=== PATIENT | male | born 1955 | race African-American/Black ===

== ENCOUNTER 2021-06-20 07:18 | Inpatient (IN) | payer OTHER ==
[~2021-06-20] VITALS: Ht 180.3 cm; Wt 121.1 kg
[2021-06-20] MEDS ORDERED: AZITHROMYCIN 500 MG in DEXT 5% WATER 250 ML IV ONE (07:30)
[2021-06-20] MEDS ORDERED: CEFTRIAXONE 1 G PREMIX 50 ML IV ONE (07:30)
[2021-06-20] MEDS ORDERED: DEXAMETHASONE 4MG/ML 1ML VIAL IV ONE (07:30)
[2021-06-20 07:56] LABS: BASOPHILS % 0.4 % (0.0-2.0); HEMATOCRIT. 51.4 % (42.0-52.0); LYMPHOCYTES % 8.9 % (20.0-50.0); MEAN CORPUSCULAR HEMOGLOBIN 31.5 pg (28.0-32.0); MEAN PLATELET VOLUME 8.4 fl (7.4-10.4); MONOCYTES % 10.8 % (2.0-8.0); NEUTROPHILS % 79.9 % (40.0-76.0); PLATELET 321 x1000/uL (130-400); RED BLOOD CELL COUNT 5.71 mill/uL (4.7-6.1); RED CELL DISTRIBUTION WIDTH 13.2 % (11.6-14.6)
[2021-06-20 07:57] LABS: BG BASE EXCESS -3.8 mmol/L (-2.0-2.0); BG CARBOXYHEMOGLOBIN 0.9 % (0.5-1.5); BG DEOXYHEMOGLOBIN 19.2 % (0.0-5.0); BG FRACTION INSPIRED OXYGEN 100; BG HCO3 ACT 19.5 mmol/L (22.0-26.0); BG METHEMOGLOBIN 0.2 % (0.0-1.5); BG OXYGEN SATURATION 80.6 % (92.0-98.5); BG OXYHEMOGLOBIN 79.7 % (94.0-97.0); BG PCO2 31.5 mmHg (35.0-45.0); BG PH 7.409 (7.350-7.450); BG PO2 45.4 mmHg (75.0-100.0); BG SAMPLE SITE RIGHT RADIAL; BG TOTAL HEMOGLOBIN 17.8 g/dL (12.0-18.0); BG VENT MODE MASK - NRB
[2021-06-20 07:57] LABS: CHLORIDE 105 mEq/L (98-107)
[2021-06-20 08:05] LABS: D-DIMER 1.26 mg/L FEU (<0.50)
[2021-06-20 08:31] LABS: CREATINE KINASE 1202 IU/L (39-308)
[2021-06-20 08:55] LABS: CLARITY URINE CLOUDY (CLEAR); COLOR URINE DARK YELLOW (YELLOW); KETONES URINE TRACE (NEGATIVE); LEUKOCYTE ESTERASE URINE TRACE (NEGATIVE); NITRITE URINE NEGATIVE (NEGATIVE); OCCULT BLOOD URINE NEGATIVE (NEGATIVE); PH URINE 5.5 (4.5-8.0); PROTEIN URINE 2+ (NEGATIVE); SPECIFIC GRAVITY URINE 1.022 (1.005-1.030)
[2021-06-20 10:15] LABS: BG BASE EXCESS -4.6 mmol/L (-2.0-2.0); BG DEOXYHEMOGLOBIN 5.5 % (0.0-5.0); BG FRACTION INSPIRED OXYGEN 100; BG HCO3 ACT 18.7 mmol/L (22.0-26.0); BG METHEMOGLOBIN 0.3 % (0.0-1.5); BG OXYGEN SATURATION 94.4 % (92.0-98.5); BG OXYHEMOGLOBIN 93.2 % (94.0-97.0); BG PCO2 31.1 mmHg (35.0-45.0); BG PH 7.398 (7.350-7.450); BG PO2 76.1 mmHg (75.0-100.0); BG SAMPLE SITE RIGHT RADIAL; BG TOTAL HEMOGLOBIN 17.2 g/dL (12.0-18.0); BG TOTAL RESPIRATORY RATE 39 b/min; BG VENT MODE MASK - BIPAP
[2021-06-20] MEDS ORDERED: NITROGLYCERIN 0.4MG TABLET SL SL PRN (10:15)
[2021-06-20] MEDS ORDERED: CLONIDINE 0.1MG TABLET PO PRN (10:15)
[2021-06-20] MEDS ORDERED: KETOROLAC 15MG/ML VIAL IV PRN (10:15)
[2021-06-20] MEDS ORDERED: GUAIFENESIN 200MG/10ML SUGAR FREE UDC PO PRN (10:15)
[2021-06-20] MEDS ORDERED: MAGNESIUM/ALUMINUM HYDROXIDE/SIMETHICONE 30ML UDC PO PRN (10:15)
[2021-06-20] MEDS ORDERED: ACETAMINOPHEN 325MG TABLET PO PRN ×2 (10:15)
[2021-06-20] MEDS ORDERED: ONDANSETRON HCL 4MG/2ML INJ IV PRN (10:15)
[2021-06-20] MEDS ORDERED: ALBUTEROL 6.7GM HFA INHALER ORI PRN (10:15)
[2021-06-20] MEDS ORDERED: DOCUSATE SODIUM 100MG CAPSULE PO PRN (10:15)
[2021-06-20] MEDS ORDERED: NA PHOS,M-B/NA PHOS,DI-BA ENEMA 118ML PR PRN (10:15)
[2021-06-20 10:40] LABS: TOTAL IRON BINDING CAPACITY 344 ug/dL (250-450)
[2021-06-20] MEDS: GUAIFENESIN/DM 600MG/30MG ER TAB 12HR PO SCH ×2 (10:41→21:05)
[2021-06-20] MEDS: ENOXAPARIN 30MG/0.3ML SYR SUBCUT SCH ×2 (10:42→21:06)
[2021-06-20 10:50] LABS: *COCAINE SCREEN URINE NEGATIVE (NEGATIVE); METHADONE URINE SCREEN NEGATIVE (NEGATIVE)
[2021-06-20 10:51] LABS: *AMPHETAMINES SCREEN URINE NEGATIVE (NEGATIVE); *BARBITURATES SCREEN URINE NEGATIVE (NEGATIVE); CANNABINOID URINE SCREEN NEGATIVE (NEGATIVE); OPIATES URINE SCREEN NEGATIVE (NEGATIVE); PHENCYCLIDINE URINE SCREEN NEGATIVE (NEGATIVE)
[2021-06-20 10:52] LABS: *BENZODIAZEPINES SCREEN URINE NEGATIVE (NEGATIVE)
[2021-06-20 10:56] LABS: FOLIC ACID (FOLATE) SERUM 13.6 ng/mL (>5.38)
[2021-06-20] MEDS: DILTIAZEM HCL 60MG TABLET PO SCH ×2 (11:45→18:13)
[2021-06-20 14:50] LABS: CREATINE KINASE MB FRACTION 10.4 ng/mL (0.5-3.6)
[2021-06-20 15:56] LABS: CREATINE KINASE 11352 IU/L (39-308)
[2021-06-20] MEDS: ALBUTEROL 6.7GM HFA INHALER ORI SCH ×2 (18:08→21:07)
[2021-06-20] MEDS ORDERED: SODIUM BICARBONATE 50 MEQ in SODIUM CHLORIDE 0.45% 1,000 ML IV SCH (20:30)
[2021-06-20] MEDS ORDERED: ZOLPIDEM TARTRATE 5MG TABLET PO PRN (21:00)
[2021-06-20] MEDS: ASCORBIC ACID 500 MG TABLET PO SCH (21:06)
[2021-06-20] MEDS: FAMOTIDINE 20MG TABLET PO SCH (21:07)
[2021-06-20 22:51] LABS: CREATINE KINASE MB FRACTION 12.8 ng/mL (0.5-3.6)
[2021-06-20 23:01] LABS: CREATINE KINASE 1238 IU/L (39-308)
[2021-06-21] VITALS (7 sets, daily range): BP systolic 119–185; BP diastolic 63–80
[2021-06-21] MEDS: DILTIAZEM HCL 60MG TABLET PO SCH ×4 (00:46→17:31)
[2021-06-21] MEDS: ALBUTEROL 6.7GM HFA INHALER ORI SCH ×4 (03:00→22:03)
[2021-06-21 05:52] LABS: CHLORIDE 107 mEq/L (98-107)
[2021-06-21 05:59] LABS: PHOSPHORUS 4.2 mg/dL (2.5-4.9)
[2021-06-21 06:09] LABS: BASOPHILS % 0.3 % (0.0-2.0); HEMATOCRIT. 46.3 % (42.0-52.0); HEMOGLOBIN. 15.9 g/dL (14.0-18.0); LYMPHOCYTES % 8.2 % (20.0-50.0); MEAN CORPUSCULAR HEMOGLOBIN 31.1 pg (28.0-32.0); MEAN CORPUSCULAR VOLUME 90.2 fL (80.0-94.0); MEAN PLATELET VOLUME 8.5 fl (7.4-10.4); NEUTROPHILS % 77.5 % (40.0-76.0); PLATELET 332 x1000/uL (130-400); RED BLOOD CELL COUNT 5.14 mill/uL (4.7-6.1)
[2021-06-21] MEDS ORDERED: CEFTRIAXONE 1 G PREMIX 50 ML IV SCH (08:00)
[2021-06-21] MEDS: CEFTRIAXONE 1,000 MG in DEXTROSE 5% WATER 50 ML IV SCH (08:05)
[2021-06-21] MEDS: CHOLECALCIFEROL (D3) 1000 UNIT TABLET PO SCH (08:05)
[2021-06-21] MEDS: ZINC SULFATE 220 MG ( 50 ) CAPSULE PO SCH (08:06)
[2021-06-21] MEDS: ENOXAPARIN 30MG/0.3ML SYR SUBCUT SCH ×2 (08:06→21:54)
[2021-06-21] MEDS: DEXAMETHASONE 10 MG/ML VIAL IV SCH (08:06)
[2021-06-21] MEDS: GUAIFENESIN/DM 600MG/30MG ER TAB 12HR PO SCH ×2 (08:06→21:54)
[2021-06-21] MEDS: ASPIRIN 81MG EC TABLET PO SCH (08:06)
[2021-06-21] MEDS: ASCORBIC ACID 500 MG TABLET PO SCH ×2 (08:07→21:54)
[2021-06-21] MEDS ORDERED: AZITHROMYCIN 500 MG in DEXT 5% WATER 250 ML IV SCH (09:00)
[2021-06-21] MEDS: AZITHROMYCIN 500 MG in DEXT 5% WATER 250 ML IV SCH (12:17)
[2021-06-21] MEDS ORDERED: ENOXAPARIN 40MG/0.4ML SYR SUBCUT SCH (15:00)
[2021-06-21] MEDS ORDERED: SODIUM BICARBONATE 50 MEQ in SODIUM CHLORIDE 0.45% 1,000 ML IV SCH (20:30)
[2021-06-21] MEDS: FAMOTIDINE 20MG TABLET PO SCH (21:54)
[2021-06-22] MEDS: DILTIAZEM HCL 60MG TABLET PO SCH ×4 (00:24→17:20)
[2021-06-22 00:29] VITALS: BP 121/73
[2021-06-22] MEDS: ALBUTEROL 6.7GM HFA INHALER ORI SCH ×4 (03:14→22:08)
[2021-06-22 04:00] VITALS: BP 142/81
[2021-06-22 08:00] VITALS: BP 127/59
[2021-06-22 08:23] LABS: CHLORIDE 105 mEq/L (98-107)
[2021-06-22] MEDS: ENOXAPARIN 30MG/0.3ML SYR SUBCUT SCH ×3 (09:00→22:08)
[2021-06-22] MEDS: CHOLECALCIFEROL (D3) 1000 UNIT TABLET PO SCH (09:06)
[2021-06-22] MEDS: ASCORBIC ACID 500 MG TABLET PO SCH ×2 (09:06→22:08)
[2021-06-22] MEDS: ZINC SULFATE 220 MG ( 50 ) CAPSULE PO SCH (09:06)
[2021-06-22] MEDS: DEXAMETHASONE 10 MG/ML VIAL IV SCH (09:07)
[2021-06-22] MEDS: ASPIRIN 81MG EC TABLET PO SCH (09:07)
[2021-06-22] MEDS: CEFTRIAXONE 1,000 MG in DEXTROSE 5% WATER 50 ML IV SCH (09:07)
[2021-06-22] MEDS: GUAIFENESIN/DM 600MG/30MG ER TAB 12HR PO SCH ×2 (09:07→22:08)
[2021-06-22 12:00] VITALS: BP 122/55
[2021-06-22] MEDS: AZITHROMYCIN 500 MG in DEXT 5% WATER 250 ML IV SCH (14:13)
[2021-06-22 16:00] VITALS: BP 123/52
[2021-06-22 20:00] VITALS: BP 139/87
[2021-06-22] MEDS: FAMOTIDINE 20MG TABLET PO SCH (22:08)
[2021-06-23] VITALS (31 sets, daily range): BP systolic 99–164; BP diastolic 72–109
[2021-06-23] MEDS: DILTIAZEM HCL 60MG TABLET PO SCH ×4 (00:30→17:49)
[2021-06-23] MEDS: ALBUTEROL 6.7GM HFA INHALER ORI SCH (03:00)
[2021-06-23 05:03] LABS: BG BASE EXCESS 3.1 mmol/L (-2.0-2.0); BG CARBOXYHEMOGLOBIN 0.6 % (0.5-1.5); BG FRACTION INSPIRED OXYGEN 100; BG METHEMOGLOBIN 0.2 % (0.0-1.5); BG OXYGEN SATURATION 83.9 % (92.0-98.5); BG OXYHEMOGLOBIN 83.2 % (94.0-97.0); BG PCO2 38.7 mmHg (35.0-45.0); BG PH 7.461 (7.350-7.450); BG PO2 46.3 mmHg (75.0-100.0); BG SAMPLE SITE RIGHT RADIAL; BG TOTAL HEMOGLOBIN 15.9 g/dL (12.0-18.0); BG VENT MODE MASK - BIPAP
[2021-06-23] MEDS ORDERED: PROPOFOL 10MG/ML 100ML 100 ML IV PRN (05:30)
[2021-06-23] MEDS ORDERED: NOREPINEPHRINE 32 MG in DEXT 5% WATER 218 ML IV PRN (05:45)
[2021-06-23 06:40] LABS: BG BASE EXCESS 2.1 mmol/L (-2.0-2.0); BG CARBOXYHEMOGLOBIN 0.5 % (0.5-1.5); BG DEOXYHEMOGLOBIN 4.5 % (0.0-5.0); BG FRACTION INSPIRED OXYGEN 100; BG HCO3 ACT 26.7 mmol/L (22.0-26.0); BG METHEMOGLOBIN 0.2 % (0.0-1.5); BG OXYGEN SATURATION 95.5 % (92.0-98.5); BG OXYHEMOGLOBIN 94.8 % (94.0-97.0); BG PCO2 41.5 mmHg (35.0-45.0); BG PH 7.426 (7.350-7.450); BG SAMPLE SITE RIGHT RADIAL; BG TOTAL HEMOGLOBIN 16.1 g/dL (12.0-18.0); BG VENT MODE MASK - BIPAP
[2021-06-23] MEDS: DEXAMETHASONE 10 MG/ML VIAL IV SCH (09:09)
[2021-06-23] MEDS: CHOLECALCIFEROL (D3) 1000 UNIT TABLET PO SCH (09:10)
[2021-06-23] MEDS: ENOXAPARIN 30MG/0.3ML SYR SUBCUT SCH ×2 (09:10→21:15)
[2021-06-23] MEDS: ASCORBIC ACID 500 MG TABLET PO SCH ×2 (09:10→21:15)
[2021-06-23] MEDS: ASPIRIN 81MG EC TABLET PO SCH (09:10)
[2021-06-23] MEDS: GUAIFENESIN/DM 600MG/30MG ER TAB 12HR PO SCH ×2 (09:10→21:15)
[2021-06-23] MEDS: ZINC SULFATE 220 MG ( 50 ) CAPSULE PO SCH (09:11)
[2021-06-23] MEDS: CEFTRIAXONE 1,000 MG in DEXTROSE 5% WATER 50 ML IV SCH (10:44)
[2021-06-23] MEDS ORDERED: LIDOCAINE HCL 1% 20ML VIAL (Pyxis) INJ ONE (11:06)
[2021-06-23] MEDS: AZITHROMYCIN 500 MG in DEXT 5% WATER 250 ML IV SCH (11:49)
[2021-06-23] MEDS: FAMOTIDINE 20MG TABLET PO SCH (21:15)
[2021-06-24] VITALS (80 sets, daily range): BP systolic 79–202; BP diastolic 53–97
[2021-06-24] MEDS: DILTIAZEM HCL 60MG TABLET PO SCH ×4 (00:15→17:15)
[2021-06-24] MEDS ORDERED: VECURONIUM BROMIDE 10 MG/VIAL IV ONE (07:52)
[2021-06-24] MEDS ORDERED: ATROPINE SULFATE 1MG/10ML SYR ONE (07:52)
[2021-06-24] MEDS ORDERED: ETOMIDATE 2MG/ML 10ML VIAL IV ONE (07:52)
[2021-06-24] MEDS ORDERED: SUCCINYLCHOLINE CHLORIDE 200MG/10ML IV ONE (07:52)
[2021-06-24] MEDS ORDERED: SODIUM CHLORIDE 0.9% 10ML VIAL ONE (07:52)
[2021-06-24] MEDS: ASCORBIC ACID 500 MG TABLET PO SCH ×2 (09:00→20:29)
[2021-06-24] MEDS: CHOLECALCIFEROL (D3) 1000 UNIT TABLET PO SCH (09:00)
[2021-06-24] MEDS: ZINC SULFATE 220 MG ( 50 ) CAPSULE PO SCH (09:00)
[2021-06-24] MEDS ORDERED: IPRATROPIUM/ALBUTEROL 0.5-3(2.5)MG/3ML NEB HHN PRN (09:00)
[2021-06-24] MEDS: GUAIFENESIN/DM 600MG/30MG ER TAB 12HR PO SCH ×2 (09:00→20:29)
[2021-06-24] MEDS: ASPIRIN 81MG EC TABLET PO SCH (09:00)
[2021-06-24] MEDS: MIDAZOLAM HCL 100 MG in SODIUM CHLORIDE 0.9% 80 ML IV PRN ×3 (09:19→22:39)
[2021-06-24] MEDS: FENTANYL CITRATE/PF 2,500 MCG in SODIUM CHLORIDE 0.9% 200 ML IV PRN ×3 (09:22→22:40)
[2021-06-24] MEDS: PROPOFOL 10MG/ML 100ML 100 ML IV PRN ×5 (09:23→22:53)
[2021-06-24 10:32] LABS: BG BASE EXCESS 0.4 mmol/L (-2.0-2.0); BG CARBOXYHEMOGLOBIN 1.1 % (0.5-1.5); BG DEOXYHEMOGLOBIN 20.8 % (0.0-5.0); BG FRACTION INSPIRED OXYGEN 100; BG HCO3 ACT 28.8 mmol/L (22.0-26.0); BG METHEMOGLOBIN 0.3 % (0.0-1.5); BG OXYGEN SATURATION 78.9 % (92.0-98.5); BG OXYHEMOGLOBIN 77.8 % (94.0-97.0); BG PCO2 61.1 mmHg (35.0-45.0); BG PH 7.291 (7.350-7.450); BG PO2 49.4 mmHg (75.0-100.0); BG SAMPLE SITE RIGHT RADIAL; BG TOTAL HEMOGLOBIN 16.7 g/dL (12.0-18.0); BG TOTAL RESPIRATORY RATE 23 b/min; BG VENT MODE VENT - AC
[2021-06-24] MEDS: IPRATROPIUM/ALBUTEROL 0.5-3(2.5)MG/3ML NEB HHN SCH ×3 (10:37→16:37)
[2021-06-24] MEDS: AZITHROMYCIN 500 MG in DEXT 5% WATER 250 ML IV SCH (10:46)
[2021-06-24] MEDS: ENOXAPARIN 30MG/0.3ML SYR SUBCUT SCH ×2 (10:46→20:28)
[2021-06-24] MEDS: CEFTRIAXONE 1,000 MG in DEXTROSE 5% WATER 50 ML IV SCH (10:46)
[2021-06-24] MEDS: DEXAMETHASONE 10 MG/ML VIAL IV SCH (10:46)
[2021-06-24] MEDS ORDERED: VECURONIUM BROMIDE 10 MG/VIAL IV SCH (11:30)
[2021-06-24] MEDS: NOREPINEPHRINE 32 MG in DEXT 5% WATER 218 ML IV PRN (12:03)
[2021-06-24] MEDS: FAMOTIDINE 20MG TABLET PO SCH (20:29)
[2021-06-25] VITALS (100 sets, daily range): BP systolic 87–166; BP diastolic 36–79
[2021-06-25] MEDS: DILTIAZEM HCL 60MG TABLET PO SCH ×4 (00:16→16:40)
[2021-06-25] MEDS: IPRATROPIUM/ALBUTEROL 0.5-3(2.5)MG/3ML NEB HHN SCH ×6 (00:58→20:47)
[2021-06-25] MEDS: PROPOFOL 10MG/ML 100ML 100 ML IV PRN ×6 (02:10→21:24)
[2021-06-25] MEDS: MIDAZOLAM HCL 100 MG in SODIUM CHLORIDE 0.9% 80 ML IV PRN ×3 (05:47→20:20)
[2021-06-25] MEDS: FENTANYL CITRATE/PF 2,500 MCG in SODIUM CHLORIDE 0.9% 200 ML IV PRN ×3 (05:47→21:25)
[2021-06-25 07:31] LABS: HEMATOCRIT. 44.3 % (42.0-52.0); HEMOGLOBIN. 14.6 g/dL (14.0-18.0); MEAN CORPUSCULAR HEMOGLOBIN 30.6 pg (28.0-32.0); MEAN CORPUSCULAR VOLUME 92.9 fL (80.0-94.0); MEAN PLATELET VOLUME 8.9 fl (7.4-10.4); PLATELET 205 x1000/uL (130-400); RED BLOOD CELL COUNT 4.77 mill/uL (4.7-6.1); RED CELL DISTRIBUTION WIDTH 13.2 % (11.6-14.6)
[2021-06-25] MEDS: GUAIFENESIN/DM 600MG/30MG ER TAB 12HR PO SCH ×2 (09:00→21:59)
[2021-06-25] MEDS: ENOXAPARIN 30MG/0.3ML SYR SUBCUT SCH ×2 (09:51→21:59)
[2021-06-25] MEDS: DEXAMETHASONE 10 MG/ML VIAL IV SCH (09:52)
[2021-06-25] MEDS: CEFTRIAXONE 1,000 MG in DEXTROSE 5% WATER 50 ML IV SCH (09:52)
[2021-06-25] MEDS: ZINC SULFATE 220 MG ( 50 ) CAPSULE PO SCH (09:53)
[2021-06-25] MEDS: ASCORBIC ACID 500 MG TABLET PO SCH ×2 (09:53→21:59)
[2021-06-25] MEDS: CHOLECALCIFEROL (D3) 1000 UNIT TABLET PO SCH (09:53)
[2021-06-25] MEDS: ASPIRIN 81MG EC TABLET PO SCH (09:53)
[2021-06-25 10:16] LABS: BG BASE EXCESS -2.8 mmol/L (-2.0-2.0); BG CARBOXYHEMOGLOBIN 1.5 % (0.5-1.5); BG DEOXYHEMOGLOBIN 10.2 % (0.0-5.0); BG FRACTION INSPIRED OXYGEN 100; BG HCO3 ACT 26.7 mmol/L (22.0-26.0); BG METHEMOGLOBIN 0.1 % (0.0-1.5); BG OXYGEN SATURATION 89.6 % (92.0-98.5); BG OXYHEMOGLOBIN 88.2 % (94.0-97.0); BG PCO2 67.2 mmHg (35.0-45.0); BG PH 7.217 (7.350-7.450); BG PO2 62.6 mmHg (75.0-100.0); BG SAMPLE SITE LEFT RADIAL; BG TOTAL HEMOGLOBIN 15.3 g/dL (12.0-18.0); BG VENT MODE VENT - AC
[2021-06-25 10:47] LABS: NUCLEATED RED BLOOD CELLS 1 /100 WBC; PLATELET ESTIMATE NORMAL
[2021-06-25] MEDS: AZITHROMYCIN 500 MG in DEXT 5% WATER 250 ML IV SCH (10:49)
[2021-06-25] MEDS ORDERED: DEXT 5%/0.9% NACL 1,000 ML IV SCH (11:00)
[2021-06-25 14:33] LABS: BG CARBOXYHEMOGLOBIN 0.8 % (0.5-1.5); BG DEOXYHEMOGLOBIN 1.8 % (0.0-5.0); BG FRACTION INSPIRED OXYGEN 100; BG HCO3 ACT 26.1 mmol/L (22.0-26.0); BG METHEMOGLOBIN 0.5 % (0.0-1.5); BG OXYGEN SATURATION 98.2 % (92.0-98.5); BG OXYHEMOGLOBIN 96.9 % (94.0-97.0); BG PCO2 58.4 mmHg (35.0-45.0); BG PH 7.268 (7.350-7.450); BG PO2 132.2 mmHg (75.0-100.0); BG SAMPLE SITE RIGHT RADIAL; BG TOTAL HEMOGLOBIN 14.8 g/dL (12.0-18.0); BG TOTAL RESPIRATORY RATE 36 b/min; BG VENT MODE VENT - AC
[2021-06-25] MEDS: SODIUM CHLORIDE 0.9% 1,000 ML IV SCH (15:21)
[2021-06-25] MEDS: FAMOTIDINE 20MG TABLET PO SCH (21:59)
[2021-06-25] MEDS: NOREPINEPHRINE 32 MG in DEXT 5% WATER 218 ML IV PRN (22:12)
[2021-06-26] VITALS (97 sets, daily range): BP systolic 81–155; BP diastolic 37–123
[2021-06-26] MEDS: PROPOFOL 10MG/ML 100ML 100 ML IV PRN ×6 (00:14→21:16)
[2021-06-26] MEDS: IPRATROPIUM/ALBUTEROL 0.5-3(2.5)MG/3ML NEB HHN SCH ×6 (01:22→20:15)
[2021-06-26] MEDS: MIDAZOLAM HCL 100 MG in SODIUM CHLORIDE 0.9% 80 ML IV PRN ×3 (03:45→18:15)
[2021-06-26 05:14] LABS: HEMATOCRIT. 39.4 % (42.0-52.0); HEMOGLOBIN. 13.2 g/dL (14.0-18.0); MEAN CORPUSCULAR HEMOGLOBIN 30.8 pg (28.0-32.0); MEAN CORPUSCULAR VOLUME 92.1 fL (80.0-94.0); MEAN PLATELET VOLUME 9.4 fl (7.4-10.4); PLATELET 266 x1000/uL (130-400); RED BLOOD CELL COUNT 4.28 mill/uL (4.7-6.1); RED CELL DISTRIBUTION WIDTH 13.1 % (11.6-14.6)
[2021-06-26] MEDS: DILTIAZEM HCL 60MG TABLET PO SCH ×4 (06:16→18:00)
[2021-06-26] MEDS: FENTANYL CITRATE/PF 2,500 MCG in SODIUM CHLORIDE 0.9% 200 ML IV PRN ×3 (06:16→22:36)
[2021-06-26] MEDS: DEXAMETHASONE 10 MG/ML VIAL IV SCH (08:27)
[2021-06-26] MEDS: ENOXAPARIN 30MG/0.3ML SYR SUBCUT SCH ×2 (08:27→21:15)
[2021-06-26] MEDS: ASPIRIN 81MG EC TABLET PO SCH (08:28)
[2021-06-26] MEDS: CHOLECALCIFEROL (D3) 1000 UNIT TABLET PO SCH (08:28)
[2021-06-26] MEDS: ASCORBIC ACID 500 MG TABLET PO SCH ×2 (08:28→21:15)
[2021-06-26] MEDS: ZINC SULFATE 220 MG ( 50 ) CAPSULE PO SCH (08:29)
[2021-06-26 08:43] LABS: BG BASE EXCESS -3.1 mmol/L (-2.0-2.0); BG CARBOXYHEMOGLOBIN 0.3 % (0.5-1.5); BG DEOXYHEMOGLOBIN 1.4 % (0.0-5.0); BG HCO3 ACT 23.4 mmol/L (22.0-26.0); BG METHEMOGLOBIN 0.3 % (0.0-1.5); BG OXYGEN SATURATION 98.6 % (92.0-98.5); BG PCO2 47.3 mmHg (35.0-45.0); BG PH 7.312 (7.350-7.450); BG PO2 135.8 mmHg (75.0-100.0); BG SAMPLE SITE RIGHT RADIAL; BG TOTAL HEMOGLOBIN 13.7 g/dL (12.0-18.0); BG VENT MODE VENT- PRVC
[2021-06-26] MEDS: GUAIFENESIN/DM 600MG/30MG ER TAB 12HR PO SCH ×2 (09:00→21:15)
[2021-06-26] MEDS: METOCLOPRAMIDE HCL 10MG/2ML VIAL IV SCH ×2 (11:32→17:06)
[2021-06-26] MEDS: SODIUM CHLORIDE 0.9% 1,000 ML IV SCH (11:33)
[2021-06-26] MEDS ORDERED: LIDOCAINE HCL 1% 20ML VIAL (Pyxis) INJ ONE (13:42)
[2021-06-26] MEDS ORDERED: VECURONIUM BROMIDE 10 MG/VIAL IV NR (16:15)
[2021-06-26 17:03] LABS: PLATELET ESTIMATE NORMAL
[2021-06-26 17:14] LABS: HEPATITIS B SURFACE ANTIGEN NEGATIVE
[2021-06-26] MEDS: FAMOTIDINE 20MG TABLET PO SCH (21:15)
[2021-06-26] MEDS: NOREPINEPHRINE 32 MG in DEXT 5% WATER 218 ML IV PRN (21:17)
[2021-06-27] VITALS (97 sets, daily range): BP systolic 68–194; BP diastolic 33–94
[2021-06-27] MEDS: PROPOFOL 10MG/ML 100ML 100 ML IV PRN ×7 (00:13→23:25)
[2021-06-27] MEDS: IPRATROPIUM/ALBUTEROL 0.5-3(2.5)MG/3ML NEB HHN SCH ×5 (00:15→21:05)
[2021-06-27] MEDS: METOCLOPRAMIDE HCL 10MG/2ML VIAL IV SCH ×4 (00:45→18:40)
[2021-06-27] MEDS: MIDAZOLAM HCL 100 MG in SODIUM CHLORIDE 0.9% 80 ML IV PRN ×4 (01:06→20:08)
[2021-06-27 05:15] LABS: HEMATOCRIT. 40.5 % (42.0-52.0); HEMOGLOBIN. 13.2 g/dL (14.0-18.0); MEAN CORPUSCULAR HEMOGLOBIN 30.6 pg (28.0-32.0); MEAN CORPUSCULAR VOLUME 94.1 fL (80.0-94.0); MEAN PLATELET VOLUME 9.3 fl (7.4-10.4); PLATELET 266 x1000/uL (130-400); RED CELL DISTRIBUTION WIDTH 13.6 % (11.6-14.6)
[2021-06-27] MEDS: DILTIAZEM HCL 60MG TABLET PO SCH ×4 (05:36→18:00)
[2021-06-27] MEDS: FENTANYL CITRATE/PF 2,500 MCG in SODIUM CHLORIDE 0.9% 200 ML IV PRN ×3 (06:28→21:15)
[2021-06-27 07:34] LABS: NUCLEATED RED BLOOD CELLS 2 /100 WBC
[2021-06-27 07:35] LABS: PLATELET ESTIMATE NORMAL
[2021-06-27] MEDS: GUAIFENESIN/DM 600MG/30MG ER TAB 12HR PO SCH ×2 (08:42→21:31)
[2021-06-27] MEDS: ASCORBIC ACID 500 MG TABLET PO SCH ×2 (08:42→21:31)
[2021-06-27] MEDS: DEXAMETHASONE 10 MG/ML VIAL IV SCH (08:42)
[2021-06-27] MEDS: ZINC SULFATE 220 MG ( 50 ) CAPSULE PO SCH (08:42)
[2021-06-27] MEDS: ASPIRIN 81MG EC TABLET PO SCH (08:42)
[2021-06-27] MEDS: CHOLECALCIFEROL (D3) 1000 UNIT TABLET PO SCH (08:42)
[2021-06-27] MEDS: ENOXAPARIN 30MG/0.3ML SYR SUBCUT SCH ×2 (08:43→21:31)
[2021-06-27 10:47] LABS: BG BASE EXCESS -4.2 mmol/L (-2.0-2.0); BG DEOXYHEMOGLOBIN 20.5 % (0.0-5.0); BG HCO3 ACT 23.5 mmol/L (22.0-26.0); BG METHEMOGLOBIN 0.1 % (0.0-1.5); BG OXYGEN SATURATION 79.3 % (92.0-98.5); BG OXYHEMOGLOBIN 78.4 % (94.0-97.0); BG PCO2 54.4 mmHg (35.0-45.0); BG PH 7.254 (7.350-7.450); BG TOTAL HEMOGLOBIN 13.5 g/dL (12.0-18.0)
[2021-06-27] MEDS: CEFEPIME 1,000 MG in DEXTROSE 5% WATER 50 ML IV SCH (13:13)
[2021-06-27] MEDS ORDERED: HEPARIN 1000 UNITS/ML 10ML ONE (14:45)
[2021-06-27 17:13] LABS: BG BASE EXCESS -5.6 mmol/L (-2.0-2.0); BG DEOXYHEMOGLOBIN 2.1 % (0.0-5.0); BG FRACTION INSPIRED OXYGEN 90; BG HCO3 ACT 22.6 mmol/L (22.0-26.0); BG METHEMOGLOBIN 0.4 % (0.0-1.5); BG OXYGEN SATURATION 97.9 % (92.0-98.5); BG OXYHEMOGLOBIN 96.5 % (94.0-97.0); BG PCO2 54.8 mmHg (35.0-45.0); BG PH 7.233 (7.350-7.450); BG PO2 124.5 mmHg (75.0-100.0); BG SAMPLE SITE RIGHT RADIAL; BG TOTAL HEMOGLOBIN 14.9 g/dL (12.0-18.0); BG VENT MODE VENT - PRVC
[2021-06-27] MEDS: FAMOTIDINE 20MG TABLET PO SCH (21:31)
[2021-06-28] VITALS (94 sets, daily range): BP systolic 89–165; BP diastolic 45–98
[2021-06-28] MEDS: IPRATROPIUM/ALBUTEROL 0.5-3(2.5)MG/3ML NEB HHN SCH ×6 (00:45→20:41)
[2021-06-28] MEDS: DILTIAZEM HCL 60MG TABLET PO SCH ×4 (00:52→18:00)
[2021-06-28] MEDS: METOCLOPRAMIDE HCL 10MG/2ML VIAL IV SCH ×4 (00:52→17:16)
[2021-06-28] MEDS: NOREPINEPHRINE 32 MG in DEXT 5% WATER 218 ML IV PRN (01:06)
[2021-06-28] MEDS: MIDAZOLAM HCL 100 MG in SODIUM CHLORIDE 0.9% 80 ML IV PRN ×3 (03:39→17:17)
[2021-06-28] MEDS: PROPOFOL 10MG/ML 100ML 100 ML IV PRN ×5 (04:13→21:18)
[2021-06-28] MEDS: FENTANYL CITRATE/PF 2,500 MCG in SODIUM CHLORIDE 0.9% 200 ML IV PRN ×3 (05:03→20:45)
[2021-06-28] MEDS ORDERED: SODIUM POLYSTYRENE SULFONATE 15 G/60 ML BOT PO NR (09:12)
[2021-06-28] MEDS ORDERED: SODIUM BICARBONATE 8.4% 1 MEQ/ML 50ML SYR IV NR (09:15)
[2021-06-28] MEDS: ZINC SULFATE 220 MG ( 50 ) CAPSULE PO SCH (09:43)
[2021-06-28] MEDS: ASPIRIN 81MG EC TABLET PO SCH (09:43)
[2021-06-28] MEDS: ASCORBIC ACID 500 MG TABLET PO SCH ×2 (09:43→20:45)
[2021-06-28] MEDS: ENOXAPARIN 30MG/0.3ML SYR SUBCUT SCH ×2 (09:43→20:46)
[2021-06-28] MEDS: CHOLECALCIFEROL (D3) 1000 UNIT TABLET PO SCH (09:43)
[2021-06-28] MEDS: DEXAMETHASONE 10 MG/ML VIAL IV SCH (09:44)
[2021-06-28] MEDS: GUAIFENESIN/DM 600MG/30MG ER TAB 12HR PO SCH ×2 (09:44→20:45)
[2021-06-28 09:52] LABS: BG BASE EXCESS -3.7 mmol/L (-2.0-2.0); BG CARBOXYHEMOGLOBIN 0.9 % (0.5-1.5); BG DEOXYHEMOGLOBIN 1.4 % (0.0-5.0); BG FRACTION INSPIRED OXYGEN 90; BG HCO3 ACT 21.9 mmol/L (22.0-26.0); BG METHEMOGLOBIN 0.4 % (0.0-1.5); BG OXYGEN SATURATION 98.6 % (92.0-98.5); BG OXYHEMOGLOBIN 97.3 % (94.0-97.0); BG PCO2 41.5 mmHg (35.0-45.0); BG PO2 141.4 mmHg (75.0-100.0); BG SAMPLE SITE RIGHT RADIAL; BG TOTAL HEMOGLOBIN 12.7 g/dL (12.0-18.0); BG VENT MODE VENT - PRVC
[2021-06-28 10:06] LABS: HEMATOCRIT. 36.9 % (42.0-52.0); HEMOGLOBIN. 11.8 g/dL (14.0-18.0); MEAN CORPUSCULAR HEMOGLOBIN 30.4 pg (28.0-32.0); MEAN CORPUSCULAR VOLUME 94.8 fL (80.0-94.0); MEAN PLATELET VOLUME 8.9 fl (7.4-10.4); PLATELET 275 x1000/uL (130-400); RED BLOOD CELL COUNT 3.89 mill/uL (4.7-6.1); RED CELL DISTRIBUTION WIDTH 13.7 % (11.6-14.6)
[2021-06-28 11:04] LABS: NUCLEATED RED BLOOD CELLS 1 /100 WBC; PLATELET ESTIMATE NORMAL
[2021-06-28] MEDS: CEFEPIME 1,000 MG in DEXTROSE 5% WATER 50 ML IV SCH (12:48)
[2021-06-28] MEDS ORDERED: VECURONIUM BROMIDE 10 MG/VIAL IV NR (15:30)
[2021-06-28] MEDS: FAMOTIDINE 20MG TABLET PO SCH (20:45)
[2021-06-29] VITALS (94 sets, daily range): BP systolic 90–148; BP diastolic 49–87
[2021-06-29] MEDS: IPRATROPIUM/ALBUTEROL 0.5-3(2.5)MG/3ML NEB HHN SCH ×5 (00:06→16:44)
[2021-06-29] MEDS: METOCLOPRAMIDE HCL 10MG/2ML VIAL IV SCH ×5 (00:08→23:40)
[2021-06-29] MEDS: PROPOFOL 10MG/ML 100ML 100 ML IV PRN ×5 (00:47→20:02)
[2021-06-29] MEDS: MIDAZOLAM HCL 100 MG in SODIUM CHLORIDE 0.9% 80 ML IV PRN ×4 (00:49→22:06)
[2021-06-29] MEDS: NOREPINEPHRINE 32 MG in DEXT 5% WATER 218 ML IV PRN (05:05)
[2021-06-29] MEDS: FENTANYL CITRATE/PF 2,500 MCG in SODIUM CHLORIDE 0.9% 200 ML IV PRN ×3 (05:06→20:05)
[2021-06-29] MEDS: DILTIAZEM HCL 60MG TABLET PO SCH ×5 (05:28→23:39)
[2021-06-29 05:44] LABS: HEMATOCRIT. 34.7 % (42.0-52.0); HEMOGLOBIN. 11.4 g/dL (14.0-18.0); MEAN CORPUSCULAR HEMOGLOBIN 30.4 pg (28.0-32.0); MEAN CORPUSCULAR VOLUME 92.2 fL (80.0-94.0); MEAN PLATELET VOLUME 9.2 fl (7.4-10.4); PLATELET 298 x1000/uL (130-400); RED BLOOD CELL COUNT 3.76 mill/uL (4.7-6.1); RED CELL DISTRIBUTION WIDTH 13.9 % (11.6-14.6)
[2021-06-29 08:28] LABS: BG BASE EXCESS -3.8 mmol/L (-2.0-2.0); BG DEOXYHEMOGLOBIN 3.7 % (0.0-5.0); BG HCO3 ACT 21.1 mmol/L (22.0-26.0); BG METHEMOGLOBIN 0.4 % (0.0-1.5); BG OXYGEN SATURATION 96.2 % (92.0-98.5); BG OXYHEMOGLOBIN 94.9 % (94.0-97.0); BG PCO2 37.8 mmHg (35.0-45.0); BG PH 7.365 (7.350-7.450); BG PO2 88.9 mmHg (75.0-100.0); BG SAMPLE SITE RIGHT RADIAL; BG TOTAL HEMOGLOBIN 12.4 g/dL (12.0-18.0); BG VENT MODE VENT- PRVC
[2021-06-29] MEDS: DEXAMETHASONE 10 MG/ML VIAL IV SCH (09:07)
[2021-06-29] MEDS: CHOLECALCIFEROL (D3) 1000 UNIT TABLET PO SCH (09:07)
[2021-06-29] MEDS: ENOXAPARIN 30MG/0.3ML SYR SUBCUT SCH (09:08)
[2021-06-29] MEDS: ASCORBIC ACID 500 MG TABLET PO SCH ×2 (09:08→20:05)
[2021-06-29] MEDS: ASPIRIN 81MG EC TABLET PO SCH (09:08)
[2021-06-29] MEDS: GUAIFENESIN/DM 600MG/30MG ER TAB 12HR PO SCH ×2 (09:08→20:05)
[2021-06-29] MEDS: ZINC SULFATE 220 MG ( 50 ) CAPSULE PO SCH (09:09)
[2021-06-29] MEDS: CEFEPIME 1,000 MG in DEXTROSE 5% WATER 50 ML IV SCH (12:24)
[2021-06-29 12:41] LABS: PLATELET ESTIMATE NORMAL
[2021-06-29] MEDS: FAMOTIDINE 20MG TABLET PO SCH (20:05)
[2021-06-30] VITALS (90 sets, daily range): BP systolic 86–137; BP diastolic 40–77
[2021-06-30] MEDS: IPRATROPIUM/ALBUTEROL 0.5-3(2.5)MG/3ML NEB HHN SCH ×6 (00:38→20:37)
[2021-06-30 00:59] LABS: HEPATITIS B SURFACE ANTIGEN NEGATIVE
[2021-06-30] MEDS: PROPOFOL 10MG/ML 100ML 100 ML IV PRN ×6 (01:19→21:31)
[2021-06-30] MEDS: FENTANYL CITRATE/PF 2,500 MCG in SODIUM CHLORIDE 0.9% 200 ML IV PRN ×3 (03:53→19:38)
[2021-06-30 05:18] LABS: HEMATOCRIT. 31.9 % (42.0-52.0); HEMOGLOBIN. 10.5 g/dL (14.0-18.0); MEAN CORPUSCULAR HEMOGLOBIN 30.3 pg (28.0-32.0); MEAN CORPUSCULAR VOLUME 92.4 fL (80.0-94.0); MEAN PLATELET VOLUME 9.5 fl (7.4-10.4); PLATELET 308 x1000/uL (130-400); RED BLOOD CELL COUNT 3.46 mill/uL (4.7-6.1)
[2021-06-30] MEDS: METOCLOPRAMIDE HCL 10MG/2ML VIAL IV SCH ×3 (05:23→17:10)
[2021-06-30] MEDS: DILTIAZEM HCL 60MG TABLET PO SCH ×3 (05:23→17:01)
[2021-06-30] MEDS: MIDAZOLAM HCL 100 MG in SODIUM CHLORIDE 0.9% 80 ML IV PRN ×3 (05:31→19:46)
[2021-06-30] MEDS ORDERED: VECURONIUM BROMIDE 10 MG/VIAL IV SCH (06:15)
[2021-06-30] MEDS ORDERED: ENOXAPARIN 30MG/0.3ML SYR SUBCUT SCH (09:00)
[2021-06-30] MEDS: ASPIRIN 81MG EC TABLET PO SCH (09:48)
[2021-06-30] MEDS: ZINC SULFATE 220 MG ( 50 ) CAPSULE PO SCH (09:48)
[2021-06-30] MEDS: CHOLECALCIFEROL (D3) 1000 UNIT TABLET PO SCH (09:48)
[2021-06-30] MEDS: DEXAMETHASONE 10 MG/ML VIAL IV SCH (09:49)
[2021-06-30] MEDS: GUAIFENESIN/DM 600MG/30MG ER TAB 12HR PO SCH ×2 (09:50→21:25)
[2021-06-30] MEDS: ASCORBIC ACID 500 MG TABLET PO SCH ×2 (09:51→21:25)
[2021-06-30 10:13] LABS: BG BASE EXCESS -3.7 mmol/L (-2.0-2.0); BG FRACTION INSPIRED OXYGEN 100; BG METHEMOGLOBIN 0.3 % (0.0-1.5); BG OXYGEN SATURATION 94.9 % (92.0-98.5); BG OXYHEMOGLOBIN 93.7 % (94.0-97.0); BG PCO2 48.7 mmHg (35.0-45.0); BG PH 7.292 (7.350-7.450); BG PO2 83.5 mmHg (75.0-100.0); BG SAMPLE SITE LEFT RADIAL; BG TOTAL HEMOGLOBIN 11.9 g/dL (12.0-18.0); BG VENT MODE VENT - PRVC
[2021-06-30] MEDS ORDERED: SODIUM BICARBONATE 8.4% 1 MEQ/ML 50ML SYR IV NR (11:45)
[2021-06-30] MEDS: CEFEPIME 1,000 MG in DEXTROSE 5% WATER 50 ML IV SCH (11:58)
[2021-06-30 14:28] LABS: PLATELET ESTIMATE NORMAL
[2021-06-30 14:47] LABS: BG BASE EXCESS -2.4 mmol/L (-2.0-2.0); BG CARBOXYHEMOGLOBIN 1.9 % (0.5-1.5); BG FRACTION INSPIRED OXYGEN 100; BG HCO3 ACT 26.2 mmol/L (22.0-26.0); BG METHEMOGLOBIN 0.2 % (0.0-1.5); BG OXYGEN SATURATION 94.9 % (92.0-98.5); BG OXYHEMOGLOBIN 92.9 % (94.0-97.0); BG PH 7.236 (7.350-7.450); BG PO2 88.1 mmHg (75.0-100.0); BG SAMPLE SITE LEFT RADIAL; BG TOTAL HEMOGLOBIN 13.1 g/dL (12.0-18.0); BG VENT MODE VENT - PRVC
[2021-06-30] MEDS ORDERED: SODIUM BICARBONATE 8.4% 1 MEQ/ML 50ML SYR IV SCH (15:15)
[2021-06-30] MEDS: SODIUM BICARBONATE 50 MEQ in DEXTROSE 5% WATER 1,000 ML IV SCH (17:38)
[2021-06-30] MEDS: FAMOTIDINE 20MG TABLET PO SCH (21:25)
[2021-06-30 23:00] LABS: BG BASE EXCESS -0.8 mmol/L (-2.0-2.0); BG CARBOXYHEMOGLOBIN 1.7 % (0.5-1.5); BG DEOXYHEMOGLOBIN 3.9 % (0.0-5.0); BG FRACTION INSPIRED OXYGEN 100; BG HCO3 ACT 24.8 mmol/L (22.0-26.0); BG METHEMOGLOBIN 0.4 % (0.0-1.5); BG PCO2 44.9 mmHg (35.0-45.0); BG PO2 89.1 mmHg (75.0-100.0); BG SAMPLE SITE RIGHT RADIAL; BG TOTAL HEMOGLOBIN 11.5 g/dL (12.0-18.0); BG VENT MODE VENT - APRV
[2021-06-30 23:31] LABS: HEPATITIS B SURFACE ANTIGEN NEGATIVE
[2021-07-01] VITALS (98 sets, daily range): BP systolic 83–158; BP diastolic 52–96
[2021-07-01] MEDS: IPRATROPIUM/ALBUTEROL 0.5-3(2.5)MG/3ML NEB HHN SCH ×6 (00:32→21:02)
[2021-07-01] MEDS: METOCLOPRAMIDE HCL 10MG/2ML VIAL IV SCH ×4 (00:34→17:24)
[2021-07-01] MEDS: PROPOFOL 10MG/ML 100ML 100 ML IV PRN ×7 (01:56→22:39)
[2021-07-01] MEDS: MIDAZOLAM HCL 100 MG in SODIUM CHLORIDE 0.9% 80 ML IV PRN ×3 (03:00→17:24)
[2021-07-01] MEDS: FENTANYL CITRATE/PF 2,500 MCG in SODIUM CHLORIDE 0.9% 200 ML IV PRN ×3 (03:00→17:24)
[2021-07-01 05:03] LABS: HEMATOCRIT. 32.4 % (42.0-52.0); HEMOGLOBIN. 10.2 g/dL (14.0-18.0); MEAN CORPUSCULAR HEMOGLOBIN 29.7 pg (28.0-32.0); MEAN CORPUSCULAR VOLUME 94.8 fL (80.0-94.0); MEAN PLATELET VOLUME 9.5 fl (7.4-10.4); PLATELET 352 x1000/uL (130-400); RED BLOOD CELL COUNT 3.42 mill/uL (4.7-6.1); RED CELL DISTRIBUTION WIDTH 14.4 % (11.6-14.6)
[2021-07-01] MEDS: DILTIAZEM HCL 60MG TABLET PO SCH ×4 (06:00→17:20)
[2021-07-01] MEDS: ZINC SULFATE 220 MG ( 50 ) CAPSULE PO SCH (08:09)
[2021-07-01] MEDS: ENOXAPARIN 40MG/0.4ML SYR SUBCUT SCH (08:09)
[2021-07-01] MEDS: ASCORBIC ACID 500 MG TABLET PO SCH ×2 (08:09→21:34)
[2021-07-01] MEDS: CHOLECALCIFEROL (D3) 1000 UNIT TABLET PO SCH (08:09)
[2021-07-01] MEDS: GUAIFENESIN/DM 600MG/30MG ER TAB 12HR PO SCH ×2 (08:09→21:33)
[2021-07-01] MEDS: DEXAMETHASONE 10 MG/ML VIAL IV SCH (08:09)
[2021-07-01] MEDS: ASPIRIN 81MG EC TABLET PO SCH (08:09)
[2021-07-01 10:29] LABS: BG BASE EXCESS -1.5 mmol/L (-2.0-2.0); BG CARBOXYHEMOGLOBIN 1.7 % (0.5-1.5); BG DEOXYHEMOGLOBIN 3.2 % (0.0-5.0); BG FRACTION INSPIRED OXYGEN 100; BG HCO3 ACT 25.5 mmol/L (22.0-26.0); BG METHEMOGLOBIN 0.1 % (0.0-1.5); BG OXYGEN SATURATION 96.7 % (92.0-98.5); BG PCO2 53.4 mmHg (35.0-45.0); BG PH 7.297 (7.350-7.450); BG PO2 101.1 mmHg (75.0-100.0); BG SAMPLE SITE LEFT RADIAL; BG VENT MODE VENT - PRVC
[2021-07-01] MEDS ORDERED: SODIUM BICARBONATE 8.4% 1 MEQ/ML 50ML SYR IV SCH (11:00)
[2021-07-01 11:13] LABS: PLATELET ESTIMATE NORMAL
[2021-07-01] MEDS: CEFEPIME 1,000 MG in DEXTROSE 5% WATER 50 ML IV SCH (11:31)
[2021-07-01] MEDS: SODIUM BICARBONATE 50 MEQ in DEXTROSE 5% WATER 1,000 ML IV SCH (16:04)
[2021-07-01] MEDS: NOREPINEPHRINE 32 MG in DEXT 5% WATER 218 ML IV PRN (16:42)
[2021-07-01] MEDS: FAMOTIDINE 20MG TABLET PO SCH (21:34)
[2021-07-02] VITALS (92 sets, daily range): BP systolic 83–154; BP diastolic 24–82
[2021-07-02] MEDS: MIDAZOLAM HCL 100 MG in SODIUM CHLORIDE 0.9% 80 ML IV PRN ×4 (00:06→19:48)
[2021-07-02] MEDS: METOCLOPRAMIDE HCL 10MG/2ML VIAL IV SCH ×4 (00:31→17:14)
[2021-07-02] MEDS: IPRATROPIUM/ALBUTEROL 0.5-3(2.5)MG/3ML NEB HHN SCH ×6 (00:42→20:28)
[2021-07-02] MEDS: FENTANYL CITRATE/PF 2,500 MCG in SODIUM CHLORIDE 0.9% 200 ML IV PRN ×4 (00:47→23:26)
[2021-07-02] MEDS: PROPOFOL 10MG/ML 100ML 100 ML IV PRN ×7 (01:37→22:30)
[2021-07-02] MEDS: DILTIAZEM HCL 60MG TABLET PO SCH ×5 (06:00→17:14)
[2021-07-02 06:24] LABS: HEMATOCRIT. 38.4 % (42.0-52.0); HEMOGLOBIN. 12.1 g/dL (14.0-18.0); MEAN CORPUSCULAR HEMOGLOBIN 30.3 pg (28.0-32.0); MEAN CORPUSCULAR VOLUME 96.3 fL (80.0-94.0); MEAN PLATELET VOLUME 9.3 fl (7.4-10.4); PLATELET 366 x1000/uL (130-400); RED BLOOD CELL COUNT 3.98 mill/uL (4.7-6.1)
[2021-07-02] MEDS: CHOLECALCIFEROL (D3) 1000 UNIT TABLET PO SCH (08:32)
[2021-07-02] MEDS: GUAIFENESIN/DM 600MG/30MG ER TAB 12HR PO SCH ×2 (08:32→21:51)
[2021-07-02] MEDS: ZINC SULFATE 220 MG ( 50 ) CAPSULE PO SCH (08:32)
[2021-07-02] MEDS: ASCORBIC ACID 500 MG TABLET PO SCH ×2 (08:32→21:52)
[2021-07-02] MEDS: ASPIRIN 81MG EC TABLET PO SCH (08:32)
[2021-07-02] MEDS: ENOXAPARIN 40MG/0.4ML SYR SUBCUT SCH (08:32)
[2021-07-02] MEDS: DEXAMETHASONE 10 MG/ML VIAL IV SCH (08:32)
[2021-07-02 08:53] LABS: BG BASE EXCESS -0.2 mmol/L (-2.0-2.0); BG CARBOXYHEMOGLOBIN 0.9 % (0.5-1.5); BG DEOXYHEMOGLOBIN 1.5 % (0.0-5.0); BG FRACTION INSPIRED OXYGEN 100; BG HCO3 ACT 24.2 mmol/L (22.0-26.0); BG METHEMOGLOBIN 0.3 % (0.0-1.5); BG OXYGEN SATURATION 98.5 % (92.0-98.5); BG OXYHEMOGLOBIN 97.3 % (94.0-97.0); BG PCO2 38.7 mmHg (35.0-45.0); BG PH 7.414 (7.350-7.450); BG PO2 136.9 mmHg (75.0-100.0); BG SAMPLE SITE LEFT RADIAL; BG TOTAL HEMOGLOBIN 10.3 g/dL (12.0-18.0); BG VENT MODE VENT - PRVC
[2021-07-02] MEDS: SODIUM BICARBONATE 50 MEQ in DEXTROSE 5% WATER 1,000 ML IV SCH (10:06)
[2021-07-02 10:26] LABS: NUCLEATED RED BLOOD CELLS 1 /100 WBC; PLATELET ESTIMATE NORMAL
[2021-07-02] MEDS: METHYLPREDNISOLONE SOD SUCC 40 MG/ML VIAL IV SCH ×2 (11:32→17:14)
[2021-07-02] MEDS: CEFEPIME 1,000 MG in DEXTROSE 5% WATER 50 ML IV SCH (12:13)
[2021-07-02] MEDS: FAMOTIDINE 20MG TABLET PO SCH (21:51)
[2021-07-03] VITALS (69 sets, daily range): BP systolic 78–189; BP diastolic 37–95
[2021-07-03] MEDS: METOCLOPRAMIDE HCL 10MG/2ML VIAL IV SCH ×5 (01:28→23:43)
[2021-07-03] MEDS: METHYLPREDNISOLONE SOD SUCC 40 MG/ML VIAL IV SCH ×3 (01:30→17:36)
[2021-07-03] MEDS: IPRATROPIUM/ALBUTEROL 0.5-3(2.5)MG/3ML NEB HHN SCH ×5 (02:40→20:42)
[2021-07-03] MEDS: MIDAZOLAM HCL 100 MG in SODIUM CHLORIDE 0.9% 80 ML IV PRN ×3 (02:40→17:58)
[2021-07-03] MEDS: PROPOFOL 10MG/ML 100ML 100 ML IV PRN ×6 (02:42→21:54)
[2021-07-03 05:50] LABS: HEMATOCRIT. 30.5 % (42.0-52.0); MEAN CORPUSCULAR HEMOGLOBIN 30.6 pg (28.0-32.0); MEAN CORPUSCULAR VOLUME 93.1 fL (80.0-94.0); MEAN PLATELET VOLUME 10.2 fl (7.4-10.4); PLATELET 326 x1000/uL (130-400); RED BLOOD CELL COUNT 3.28 mill/uL (4.7-6.1); RED CELL DISTRIBUTION WIDTH 14.5 % (11.6-14.6)
[2021-07-03] MEDS: DILTIAZEM HCL 60MG TABLET PO SCH ×5 (05:53→23:35)
[2021-07-03] MEDS: SODIUM BICARBONATE 50 MEQ in DEXTROSE 5% WATER 1,000 ML IV SCH (05:56)
[2021-07-03] MEDS: FENTANYL CITRATE/PF 2,500 MCG in SODIUM CHLORIDE 0.9% 200 ML IV PRN ×3 (07:42→22:48)
[2021-07-03 07:43] LABS: BG BASE EXCESS -1.6 mmol/L (-2.0-2.0); BG CARBOXYHEMOGLOBIN 0.9 % (0.5-1.5); BG METHEMOGLOBIN 0.3 % (0.0-1.5); BG OXYHEMOGLOBIN 97.8 % (94.0-97.0); BG PCO2 44.2 mmHg (35.0-45.0); BG PH 7.353 (7.350-7.450); BG SAMPLE SITE RIGHT RADIAL; BG TOTAL HEMOGLOBIN 11.5 g/dL (12.0-18.0); BG VENT MODE VENT- PRVC
[2021-07-03] MEDS: ZINC SULFATE 220 MG ( 50 ) CAPSULE PO SCH (09:57)
[2021-07-03] MEDS: ASCORBIC ACID 500 MG TABLET PO SCH ×2 (09:57→20:15)
[2021-07-03] MEDS: GUAIFENESIN/DM 600MG/30MG ER TAB 12HR PO SCH ×2 (09:57→20:15)
[2021-07-03] MEDS: CHOLECALCIFEROL (D3) 1000 UNIT TABLET PO SCH (09:57)
[2021-07-03] MEDS: ASPIRIN 81MG EC TABLET PO SCH (09:57)
[2021-07-03] MEDS: ENOXAPARIN 40MG/0.4ML SYR SUBCUT SCH (09:59)
[2021-07-03] MEDS ORDERED: SODIUM POLYSTYRENE SULFONATE 15 G/60 ML BOT PO NR (11:00)
[2021-07-03 11:31] LABS: PLATELET ESTIMATE NORMAL
[2021-07-03] MEDS: CEFEPIME 1,000 MG in DEXTROSE 5% WATER 50 ML IV SCH (14:43)
[2021-07-03] MEDS: FAMOTIDINE 20MG TABLET PO SCH (20:15)
[2021-07-04] VITALS (96 sets, daily range): BP systolic 83–136; BP diastolic 50–105
[2021-07-04] MEDS: MIDAZOLAM HCL 100 MG in SODIUM CHLORIDE 0.9% 80 ML IV PRN ×4 (00:31→21:30)
[2021-07-04] MEDS: PROPOFOL 10MG/ML 100ML 100 ML IV PRN ×6 (01:43→21:30)
[2021-07-04] MEDS: IPRATROPIUM/ALBUTEROL 0.5-3(2.5)MG/3ML NEB HHN SCH ×6 (01:43→23:35)
[2021-07-04] MEDS: METHYLPREDNISOLONE SOD SUCC 40 MG/ML VIAL IV SCH ×3 (01:45→17:51)
[2021-07-04] MEDS: DILTIAZEM HCL 60MG TABLET PO SCH ×3 (05:23→17:51)
[2021-07-04] MEDS: METOCLOPRAMIDE HCL 10MG/2ML VIAL IV SCH ×3 (05:27→17:51)
[2021-07-04 05:46] LABS: HEMATOCRIT. 31.6 % (42.0-52.0); HEMOGLOBIN. 10.2 g/dL (14.0-18.0); MEAN CORPUSCULAR HEMOGLOBIN 30.3 pg (28.0-32.0); MEAN CORPUSCULAR VOLUME 93.7 fL (80.0-94.0); PLATELET 368 x1000/uL (130-400); RED BLOOD CELL COUNT 3.38 mill/uL (4.7-6.1); RED CELL DISTRIBUTION WIDTH 14.5 % (11.6-14.6)
[2021-07-04] MEDS: FENTANYL CITRATE/PF 2,500 MCG in SODIUM CHLORIDE 0.9% 200 ML IV PRN ×2 (07:43→16:30)
[2021-07-04] MEDS: ASPIRIN 81MG TABLET PO SCH (09:09)
[2021-07-04] MEDS: ENOXAPARIN 40MG/0.4ML SYR SUBCUT SCH (09:10)
[2021-07-04] MEDS: ASCORBIC ACID 500 MG TABLET PO SCH ×2 (09:11→21:05)
[2021-07-04] MEDS: ZINC SULFATE 220 MG ( 50 ) CAPSULE PO SCH (09:11)
[2021-07-04] MEDS: CHOLECALCIFEROL (D3) 1000 UNIT TABLET PO SCH (09:11)
[2021-07-04] MEDS: GUAIFENESIN/DM 600MG/30MG ER TAB 12HR PO SCH ×2 (09:11→21:04)
[2021-07-04 09:47] LABS: BG BASE EXCESS -0.2 mmol/L (-2.0-2.0); BG CARBOXYHEMOGLOBIN 0.8 % (0.5-1.5); BG DEOXYHEMOGLOBIN 1.7 % (0.0-5.0); BG FRACTION INSPIRED OXYGEN 90; BG HCO3 ACT 26.5 mmol/L (22.0-26.0); BG METHEMOGLOBIN 0.2 % (0.0-1.5); BG OXYGEN SATURATION 98.3 % (92.0-98.5); BG OXYHEMOGLOBIN 97.3 % (94.0-97.0); BG PCO2 53.1 mmHg (35.0-45.0); BG PH 7.316 (7.350-7.450); BG PO2 145.2 mmHg (75.0-100.0); BG SAMPLE SITE LEFT RADIAL; BG TOTAL RESPIRATORY RATE 40 b/min; BG VENT MODE VENT- PRVC
[2021-07-04 10:19] LABS: NUCLEATED RED BLOOD CELLS 1 /100 WBC; PLATELET ESTIMATE NORMAL
[2021-07-04] MEDS: CEFEPIME 1,000 MG in DEXTROSE 5% WATER 50 ML IV SCH (13:11)
[2021-07-04] MEDS: DOCUSATE SODIUM SUGAR FREE 100MG/10ML UDC NG PRN (17:50)
[2021-07-04] MEDS: FAMOTIDINE 20MG TABLET PO SCH (21:05)
[2021-07-05] VITALS (71 sets, daily range): BP systolic 89–141; BP diastolic 55–86
[2021-07-05] MEDS: FENTANYL CITRATE/PF 2,500 MCG in SODIUM CHLORIDE 0.9% 200 ML IV PRN ×3 (00:07→16:09)
[2021-07-05] MEDS: METOCLOPRAMIDE HCL 10MG/2ML VIAL IV SCH ×4 (01:10→17:20)
[2021-07-05] MEDS: PROPOFOL 10MG/ML 100ML 100 ML IV PRN ×2 (02:05→07:50)
[2021-07-05] MEDS: METHYLPREDNISOLONE SOD SUCC 40 MG/ML VIAL IV SCH ×3 (02:07→17:20)
[2021-07-05] MEDS: IPRATROPIUM/ALBUTEROL 0.5-3(2.5)MG/3ML NEB HHN SCH ×5 (04:21→20:08)
[2021-07-05 05:28] LABS: HEMATOCRIT. 31.4 % (42.0-52.0); HEMOGLOBIN. 10.2 g/dL (14.0-18.0); MEAN CORPUSCULAR HEMOGLOBIN 30.3 pg (28.0-32.0); MEAN CORPUSCULAR VOLUME 93.4 fL (80.0-94.0); MEAN PLATELET VOLUME 9.8 fl (7.4-10.4); PLATELET 394 x1000/uL (130-400); RED BLOOD CELL COUNT 3.36 mill/uL (4.7-6.1); RED CELL DISTRIBUTION WIDTH 14.7 % (11.6-14.6)
[2021-07-05] MEDS: MIDAZOLAM HCL 100 MG in SODIUM CHLORIDE 0.9% 80 ML IV PRN ×2 (05:39→14:06)
[2021-07-05] MEDS: DILTIAZEM HCL 60MG TABLET PO SCH ×4 (05:47→17:20)
[2021-07-05 08:21] LABS: BG BASE EXCESS -2.8 mmol/L (-2.0-2.0); BG CARBOXYHEMOGLOBIN 1.2 % (0.5-1.5); BG DEOXYHEMOGLOBIN 3.4 % (0.0-5.0); BG HCO3 ACT 23.6 mmol/L (22.0-26.0); BG METHEMOGLOBIN 0.3 % (0.0-1.5); BG OXYGEN SATURATION 96.5 % (92.0-98.5); BG OXYHEMOGLOBIN 95.1 % (94.0-97.0); BG PCO2 47.8 mmHg (35.0-45.0); BG PH 7.311 (7.350-7.450); BG SAMPLE SITE LEFT RADIAL; BG TOTAL HEMOGLOBIN 11.8 g/dL (12.0-18.0); BG VENT MODE VENT- PRVC
[2021-07-05] MEDS: ASPIRIN 81MG TABLET PO SCH (09:29)
[2021-07-05] MEDS: ASCORBIC ACID 500 MG TABLET PO SCH ×2 (09:29→21:12)
[2021-07-05] MEDS: CHOLECALCIFEROL (D3) 1000 UNIT TABLET PO SCH (09:29)
[2021-07-05] MEDS: DOCUSATE SODIUM SUGAR FREE 100MG/10ML UDC NG PRN (09:29)
[2021-07-05] MEDS: ENOXAPARIN 40MG/0.4ML SYR SUBCUT SCH (09:30)
[2021-07-05] MEDS: ZINC SULFATE 220 MG ( 50 ) CAPSULE PO SCH (09:32)
[2021-07-05] MEDS: GUAIFENESIN/DM 600MG/30MG ER TAB 12HR PO SCH ×2 (09:32→21:12)
[2021-07-05] MEDS ORDERED: PROPOFOL 10MG/ML 100ML 100 ML IV PRN (10:00)
[2021-07-05 12:27] LABS: NUCLEATED RED BLOOD CELLS 1 /100 WBC; PLATELET ESTIMATE NORMAL
[2021-07-05] MEDS: CEFEPIME 1,000 MG in DEXTROSE 5% WATER 50 ML IV SCH (13:50)
[2021-07-05] MEDS: FAMOTIDINE 20MG TABLET PO SCH (21:12)
[2021-07-05] MEDS: ENOXAPARIN 30MG/0.3ML SYR SUBCUT SCH (21:18)
[2021-07-06] VITALS (75 sets, daily range): BP systolic 79–175; BP diastolic 34–86
[2021-07-06] MEDS: IPRATROPIUM/ALBUTEROL 0.5-3(2.5)MG/3ML NEB HHN SCH ×6 (00:16→20:33)
[2021-07-06] MEDS: DILTIAZEM HCL 60MG TABLET PO SCH ×4 (00:32→17:18)
[2021-07-06] MEDS: METOCLOPRAMIDE HCL 10MG/2ML VIAL IV SCH ×4 (00:32→17:19)
[2021-07-06] MEDS: FENTANYL CITRATE/PF 2,500 MCG in SODIUM CHLORIDE 0.9% 200 ML IV PRN ×3 (01:25→16:53)
[2021-07-06] MEDS: METHYLPREDNISOLONE SOD SUCC 40 MG/ML VIAL IV SCH ×3 (02:40→17:19)
[2021-07-06 05:46] LABS: HEMATOCRIT. 30.9 % (42.0-52.0); HEMOGLOBIN. 10.1 g/dL (14.0-18.0); MEAN CORPUSCULAR VOLUME 94.3 fL (80.0-94.0); MEAN PLATELET VOLUME 9.6 fl (7.4-10.4); PLATELET 420 x1000/uL (130-400); RED BLOOD CELL COUNT 3.27 mill/uL (4.7-6.1); RED CELL DISTRIBUTION WIDTH 14.7 % (11.6-14.6)
[2021-07-06] MEDS: MIDAZOLAM HCL 100 MG in SODIUM CHLORIDE 0.9% 80 ML IV PRN ×2 (05:46→16:52)
[2021-07-06 08:19] LABS: PLATELET ESTIMATE INCREASED
[2021-07-06] MEDS: ASPIRIN 81MG TABLET PO SCH (08:27)
[2021-07-06] MEDS: ENOXAPARIN 30MG/0.3ML SYR SUBCUT SCH ×2 (08:27→21:08)
[2021-07-06] MEDS: ZINC SULFATE 220 MG ( 50 ) CAPSULE PO SCH (08:27)
[2021-07-06] MEDS: ASCORBIC ACID 500 MG TABLET PO SCH ×2 (08:27→21:08)
[2021-07-06] MEDS: GUAIFENESIN/DM 600MG/30MG ER TAB 12HR PO SCH ×2 (08:27→21:08)
[2021-07-06] MEDS: CHOLECALCIFEROL (D3) 1000 UNIT TABLET PO SCH (08:27)
[2021-07-06 09:10] LABS: BG BASE EXCESS -2.2 mmol/L (-2.0-2.0); BG CARBOXYHEMOGLOBIN 0.5 % (0.5-1.5); BG DEOXYHEMOGLOBIN 1.1 % (0.0-5.0); BG FRACTION INSPIRED OXYGEN 90; BG HCO3 ACT 24.5 mmol/L (22.0-26.0); BG METHEMOGLOBIN 0.2 % (0.0-1.5); BG OXYGEN SATURATION 98.9 % (92.0-98.5); BG OXYHEMOGLOBIN 98.2 % (94.0-97.0); BG PCO2 50.4 mmHg (35.0-45.0); BG PH 7.304 (7.350-7.450); BG PO2 189.3 mmHg (75.0-100.0); BG SAMPLE SITE RIGHT RADIAL; BG TOTAL HEMOGLOBIN 10.9 g/dL (12.0-18.0); BG VENT MODE VENT - PRVC
[2021-07-06] MEDS ORDERED: PROPOFOL 10MG/ML 100ML 100 ML IV PRN (10:45)
[2021-07-06] MEDS: CEFEPIME 1,000 MG in DEXTROSE 5% WATER 50 ML IV SCH (14:28)
[2021-07-06] MEDS: FAMOTIDINE 20MG TABLET PO SCH (21:08)
[2021-07-07] VITALS (91 sets, daily range): BP systolic 90–150; BP diastolic 39–112
[2021-07-07] MEDS: METOCLOPRAMIDE HCL 10MG/2ML VIAL IV SCH ×5 (00:09→23:24)
[2021-07-07] MEDS: IPRATROPIUM/ALBUTEROL 0.5-3(2.5)MG/3ML NEB HHN SCH ×6 (00:41→20:18)
[2021-07-07] MEDS: METHYLPREDNISOLONE SOD SUCC 40 MG/ML VIAL IV SCH ×3 (01:23→17:17)
[2021-07-07] MEDS: DILTIAZEM HCL 60MG TABLET PO SCH ×6 (01:25→23:23)
[2021-07-07] MEDS: FENTANYL CITRATE/PF 2,500 MCG in SODIUM CHLORIDE 0.9% 200 ML IV PRN ×3 (03:14→21:02)
[2021-07-07] MEDS: MIDAZOLAM HCL 100 MG in SODIUM CHLORIDE 0.9% 80 ML IV PRN ×3 (03:35→21:59)
[2021-07-07 08:27] LABS: BG BASE EXCESS -3.7 mmol/L (-2.0-2.0); BG CARBOXYHEMOGLOBIN 0.7 % (0.5-1.5); BG HCO3 ACT 22.7 mmol/L (22.0-26.0); BG METHEMOGLOBIN 0.1 % (0.0-1.5); BG OXYGEN SATURATION 92.9 % (92.0-98.5); BG OXYHEMOGLOBIN 92.2 % (94.0-97.0); BG PCO2 47.4 mmHg (35.0-45.0); BG PH 7.299 (7.350-7.450); BG PO2 71.6 mmHg (75.0-100.0); BG SAMPLE SITE RIGHT RADIAL; BG TOTAL HEMOGLOBIN 10.4 g/dL (12.0-18.0); BG VENT MODE VENT- PRVC
[2021-07-07] MEDS: CHOLECALCIFEROL (D3) 1000 UNIT TABLET PO SCH (08:40)
[2021-07-07] MEDS: ENOXAPARIN 30MG/0.3ML SYR SUBCUT SCH ×2 (08:40→20:25)
[2021-07-07] MEDS: ZINC SULFATE 220 MG ( 50 ) CAPSULE PO SCH (08:40)
[2021-07-07] MEDS: GUAIFENESIN/DM 600MG/30MG ER TAB 12HR PO SCH ×2 (08:40→20:25)
[2021-07-07] MEDS: ASCORBIC ACID 500 MG TABLET PO SCH ×2 (08:40→20:25)
[2021-07-07] MEDS: ASPIRIN 81MG TABLET PO SCH (08:40)
[2021-07-07] MEDS: PROPOFOL 10MG/ML 100ML 100 ML IV PRN ×2 (11:41→23:34)
[2021-07-07] MEDS: CEFEPIME 1,000 MG in DEXTROSE 5% WATER 50 ML IV SCH (13:26)
[2021-07-07] MEDS: FAMOTIDINE 20MG TABLET PO SCH (20:25)
[2021-07-08] VITALS (64 sets, daily range): BP systolic 76–145; BP diastolic 44–92
[2021-07-08] MEDS: IPRATROPIUM/ALBUTEROL 0.5-3(2.5)MG/3ML NEB HHN SCH ×6 (00:13→20:00)
[2021-07-08] MEDS: METHYLPREDNISOLONE SOD SUCC 40 MG/ML VIAL IV SCH ×3 (02:07→19:01)
[2021-07-08] MEDS: FENTANYL CITRATE/PF 2,500 MCG in SODIUM CHLORIDE 0.9% 200 ML IV PRN ×3 (04:59→22:02)
[2021-07-08] MEDS: DILTIAZEM HCL 60MG TABLET PO SCH ×3 (05:07→19:01)
[2021-07-08] MEDS: METOCLOPRAMIDE HCL 10MG/2ML VIAL IV SCH ×3 (05:10→19:02)
[2021-07-08 07:42] LABS: HEMATOCRIT. 29.8 % (42.0-52.0); HEMOGLOBIN. 9.4 g/dL (14.0-18.0); MEAN CORPUSCULAR HEMOGLOBIN 30.2 pg (28.0-32.0); MEAN CORPUSCULAR VOLUME 95.5 fL (80.0-94.0); MEAN PLATELET VOLUME 9.8 fl (7.4-10.4); PLATELET 470 x1000/uL (130-400); RED BLOOD CELL COUNT 3.12 mill/uL (4.7-6.1); RED CELL DISTRIBUTION WIDTH 15.4 % (11.6-14.6)
[2021-07-08] MEDS: MIDAZOLAM HCL 100 MG in SODIUM CHLORIDE 0.9% 80 ML IV PRN ×2 (08:49→19:03)
[2021-07-08] MEDS: ZINC SULFATE 220 MG ( 50 ) CAPSULE PO SCH (09:04)
[2021-07-08] MEDS: CHOLECALCIFEROL (D3) 1000 UNIT TABLET PO SCH (09:04)
[2021-07-08] MEDS: GUAIFENESIN/DM 600MG/30MG ER TAB 12HR PO SCH ×2 (09:04→21:04)
[2021-07-08] MEDS: ASCORBIC ACID 500 MG TABLET PO SCH ×2 (09:04→21:04)
[2021-07-08] MEDS: ASPIRIN 81MG TABLET PO SCH (09:04)
[2021-07-08] MEDS: ENOXAPARIN 30MG/0.3ML SYR SUBCUT SCH ×2 (09:06→21:05)
[2021-07-08 10:07] LABS: PLATELET ESTIMATE INCREASED
[2021-07-08 11:13] LABS: BG BASE EXCESS -0.7 mmol/L (-2.0-2.0); BG CARBOXYHEMOGLOBIN 0.4 % (0.5-1.5); BG DEOXYHEMOGLOBIN 8.9 % (0.0-5.0); BG FRACTION INSPIRED OXYGEN 100; BG HCO3 ACT 24.4 mmol/L (22.0-26.0); BG METHEMOGLOBIN 0.2 % (0.0-1.5); BG OXYHEMOGLOBIN 90.5 % (94.0-97.0); BG PCO2 42.1 mmHg (35.0-45.0); BG PH 7.381 (7.350-7.450); BG PO2 64.3 mmHg (75.0-100.0); BG SAMPLE SITE LEFT RADIAL; BG TOTAL HEMOGLOBIN 10.8 g/dL (12.0-18.0); BG TOTAL RESPIRATORY RATE 40 b/min; BG VENT MODE VENT- PRVC
[2021-07-08] MEDS: FAMOTIDINE 20MG TABLET PO SCH (21:04)
[2021-07-08] MEDS ORDERED: PROPOFOL 10MG/ML 100ML 100 ML IV PRN (22:53)
[2021-07-09] VITALS (79 sets, daily range): BP systolic 93–176; BP diastolic 44–116
[2021-07-09] MEDS: IPRATROPIUM/ALBUTEROL 0.5-3(2.5)MG/3ML NEB HHN SCH ×6 (00:15→21:04)
[2021-07-09] MEDS: DOCUSATE SODIUM SUGAR FREE 100MG/10ML UDC NG PRN (00:37)
[2021-07-09] MEDS: METOCLOPRAMIDE HCL 10MG/2ML VIAL IV SCH ×5 (00:37→23:41)
[2021-07-09] MEDS: DILTIAZEM HCL 60MG TABLET PO SCH ×5 (00:37→23:43)
[2021-07-09] MEDS: MIDAZOLAM HCL 100 MG in SODIUM CHLORIDE 0.9% 80 ML IV PRN ×3 (03:04→17:37)
[2021-07-09] MEDS: METHYLPREDNISOLONE SOD SUCC 40 MG/ML VIAL IV SCH ×3 (03:32→17:44)
[2021-07-09] MEDS: FENTANYL CITRATE/PF 2,500 MCG in SODIUM CHLORIDE 0.9% 200 ML IV PRN ×3 (04:45→19:38)
[2021-07-09] MEDS: ENOXAPARIN 30MG/0.3ML SYR SUBCUT SCH ×2 (08:36→21:00)
[2021-07-09] MEDS: CHOLECALCIFEROL (D3) 1000 UNIT TABLET PO SCH (08:36)
[2021-07-09] MEDS: ASCORBIC ACID 500 MG TABLET PO SCH ×2 (08:36→21:00)
[2021-07-09] MEDS: GUAIFENESIN/DM 600MG/30MG ER TAB 12HR PO SCH ×2 (08:36→21:00)
[2021-07-09] MEDS: ASPIRIN 81MG TABLET PO SCH (08:36)
[2021-07-09] MEDS: ZINC SULFATE 220 MG ( 50 ) CAPSULE PO SCH (08:36)
[2021-07-09 09:54] LABS: BG BASE EXCESS -4.9 mmol/L (-2.0-2.0); BG CARBOXYHEMOGLOBIN 0.7 % (0.5-1.5); BG DEOXYHEMOGLOBIN 13.4 % (0.0-5.0); BG FRACTION INSPIRED OXYGEN 90; BG HCO3 ACT 20.9 mmol/L (22.0-26.0); BG METHEMOGLOBIN 0.1 % (0.0-1.5); BG OXYGEN SATURATION 86.5 % (92.0-98.5); BG OXYHEMOGLOBIN 85.8 % (94.0-97.0); BG PCO2 41.5 mmHg (35.0-45.0); BG PH 7.319 (7.350-7.450); BG PO2 58.1 mmHg (75.0-100.0); BG SAMPLE SITE RIGHT RADIAL; BG TOTAL HEMOGLOBIN 10.1 g/dL (12.0-18.0); BG VENT MODE VENT - PRVC
[2021-07-09] MEDS: LACTULOSE 20G/30ML UDC NG SCH ×2 (13:20→23:43)
[2021-07-09] MEDS: FAMOTIDINE 20MG TABLET PO SCH (21:00)
[2021-07-10] VITALS (83 sets, daily range): BP systolic 80–164; BP diastolic 48–123
[2021-07-10] MEDS: MIDAZOLAM HCL 100 MG in SODIUM CHLORIDE 0.9% 80 ML IV PRN ×4 (00:29→22:12)
[2021-07-10] MEDS: IPRATROPIUM/ALBUTEROL 0.5-3(2.5)MG/3ML NEB HHN SCH ×6 (00:49→20:37)
[2021-07-10] MEDS: METHYLPREDNISOLONE SOD SUCC 40 MG/ML VIAL IV SCH ×3 (02:21→17:25)
[2021-07-10] MEDS: FENTANYL CITRATE/PF 2,500 MCG in SODIUM CHLORIDE 0.9% 200 ML IV PRN ×3 (02:57→18:06)
[2021-07-10] MEDS: LACTULOSE 20G/30ML UDC NG SCH ×2 (05:16→13:59)
[2021-07-10] MEDS: DILTIAZEM HCL 60MG TABLET PO SCH ×4 (05:24→23:53)
[2021-07-10] MEDS: METOCLOPRAMIDE HCL 10MG/2ML VIAL IV SCH ×4 (05:25→23:52)
[2021-07-10 06:58] LABS: PHOSPHORUS 8.7 mg/dL (2.5-4.9)
[2021-07-10] MEDS: ASCORBIC ACID 500 MG TABLET PO SCH ×2 (08:33→21:54)
[2021-07-10] MEDS: ZINC SULFATE 220 MG ( 50 ) CAPSULE PO SCH (08:33)
[2021-07-10] MEDS: ASPIRIN 81MG TABLET PO SCH (08:33)
[2021-07-10] MEDS: CHOLECALCIFEROL (D3) 1000 UNIT TABLET PO SCH (08:33)
[2021-07-10] MEDS: ENOXAPARIN 30MG/0.3ML SYR SUBCUT SCH (08:34)
[2021-07-10] MEDS: GUAIFENESIN/DM 600MG/30MG ER TAB 12HR PO SCH ×2 (08:34→21:54)
[2021-07-10 09:49] LABS: BG BASE EXCESS -6.5 mmol/L (-2.0-2.0); BG FRACTION INSPIRED OXYGEN 90; BG HCO3 ACT 20.8 mmol/L (22.0-26.0); BG METHEMOGLOBIN 0.1 % (0.0-1.5); BG OXYGEN SATURATION 90.9 % (92.0-98.5); BG OXYHEMOGLOBIN 89.9 % (94.0-97.0); BG PCO2 48.9 mmHg (35.0-45.0); BG PH 7.246 (7.350-7.450); BG PO2 70.5 mmHg (75.0-100.0); BG SAMPLE SITE RIGHT RADIAL; BG TOTAL HEMOGLOBIN 11.1 g/dL (12.0-18.0); BG VENT MODE VENT - PRVC
[2021-07-10] MEDS: SEVELAMER CARBONATE 800 MG TABLET PO SCH ×2 (11:35→17:25)
[2021-07-10] MEDS ORDERED: SEVELAMER CARBONATE 800 MG TABLET PO SCH (12:00)
[2021-07-10] MEDS: PROPOFOL 10MG/ML 100ML 100 ML IV PRN ×2 (14:03→23:27)
[2021-07-10] MEDS: FAMOTIDINE 20MG TABLET PO SCH (21:54)
[2021-07-11] VITALS (85 sets, daily range): BP systolic 78–136; BP diastolic 43–75
[2021-07-11] MEDS: IPRATROPIUM/ALBUTEROL 0.5-3(2.5)MG/3ML NEB HHN SCH ×6 (00:35→20:26)
[2021-07-11] MEDS: FENTANYL CITRATE/PF 2,500 MCG in SODIUM CHLORIDE 0.9% 200 ML IV PRN ×4 (01:30→19:48)
[2021-07-11] MEDS: METHYLPREDNISOLONE SOD SUCC 40 MG/ML VIAL IV SCH ×3 (01:32→17:59)
[2021-07-11] MEDS: MIDAZOLAM HCL 100 MG in SODIUM CHLORIDE 0.9% 80 ML IV PRN ×3 (04:40→19:31)
[2021-07-11 05:39] LABS: HEMATOCRIT. 28.8 % (42.0-52.0); HEMOGLOBIN. 9.3 g/dL (14.0-18.0); MEAN CORPUSCULAR HEMOGLOBIN 30.6 pg (28.0-32.0); MEAN CORPUSCULAR VOLUME 94.6 fL (80.0-94.0); MEAN PLATELET VOLUME 9.1 fl (7.4-10.4); PLATELET 350 x1000/uL (130-400); RED BLOOD CELL COUNT 3.05 mill/uL (4.7-6.1); RED CELL DISTRIBUTION WIDTH 15.5 % (11.6-14.6)
[2021-07-11] MEDS: DILTIAZEM HCL 60MG TABLET PO SCH ×3 (05:56→17:31)
[2021-07-11] MEDS: METOCLOPRAMIDE HCL 10MG/2ML VIAL IV SCH ×3 (06:02→17:58)
[2021-07-11] MEDS: SEVELAMER CARBONATE 800 MG TABLET PO SCH ×3 (06:02→17:58)
[2021-07-11] MEDS: ZINC SULFATE 220 MG ( 50 ) CAPSULE PO SCH (09:09)
[2021-07-11] MEDS: GUAIFENESIN/DM 600MG/30MG ER TAB 12HR PO SCH ×2 (09:09→20:10)
[2021-07-11] MEDS: ASPIRIN 81MG TABLET PO SCH (09:09)
[2021-07-11] MEDS: DOCUSATE SODIUM SUGAR FREE 100MG/10ML UDC NG PRN (09:09)
[2021-07-11] MEDS: CHOLECALCIFEROL (D3) 1000 UNIT TABLET PO SCH (09:09)
[2021-07-11] MEDS: LACTULOSE 20G/30ML UDC NG PRN (09:10)
[2021-07-11] MEDS: ASCORBIC ACID 500 MG TABLET PO SCH ×2 (09:10→20:10)
[2021-07-11] MEDS: ENOXAPARIN 40MG/0.4ML SYR SUBCUT SCH (09:11)
[2021-07-11] MEDS: PROPOFOL 10MG/ML 100ML 100 ML IV PRN (09:13)
[2021-07-11 09:17] LABS: BG BASE EXCESS -2.2 mmol/L (-2.0-2.0); BG CARBOXYHEMOGLOBIN 0.9 % (0.5-1.5); BG DEOXYHEMOGLOBIN 23.7 % (0.0-5.0); BG FRACTION INSPIRED OXYGEN 90; BG HCO3 ACT 23.7 mmol/L (22.0-26.0); BG METHEMOGLOBIN 0.2 % (0.0-1.5); BG OXYHEMOGLOBIN 75.2 % (94.0-97.0); BG PCO2 45.3 mmHg (35.0-45.0); BG PH 7.336 (7.350-7.450); BG PO2 42.6 mmHg (75.0-100.0); BG SAMPLE SITE RIGHT RADIAL; BG TOTAL HEMOGLOBIN 9.6 g/dL (12.0-18.0); BG VENT MODE VENT - PRVC
[2021-07-11 10:56] LABS: PLATELET ESTIMATE NORMAL
[2021-07-11] MEDS ORDERED: PROPOFOL 10MG/ML 100ML 100 ML IV PRN (11:15)
[2021-07-11] MEDS: PHENYLEPHRINE 100 MG in DEXT 5% WATER 240 ML IV PRN (13:11)
[2021-07-11] MEDS ORDERED: AMIODARONE HCL 150 MG in DEXT 5% WATER 100 ML IV NR (13:30)
[2021-07-11] MEDS ORDERED: AMIODARONE HCL 900 MG in DEXT 5% WATER 482 ML IV SCH (13:30)
[2021-07-11 15:20] LABS: BG BASE EXCESS -4.2 mmol/L (-2.0-2.0); BG CARBOXYHEMOGLOBIN 0.6 % (0.5-1.5); BG DEOXYHEMOGLOBIN 7.7 % (0.0-5.0); BG FRACTION INSPIRED OXYGEN 90; BG HCO3 ACT 22.4 mmol/L (22.0-26.0); BG METHEMOGLOBIN 0.2 % (0.0-1.5); BG OXYGEN SATURATION 92.2 % (92.0-98.5); BG OXYHEMOGLOBIN 91.5 % (94.0-97.0); BG PCO2 47.7 mmHg (35.0-45.0); BG PH 7.289 (7.350-7.450); BG PO2 71.9 mmHg (75.0-100.0); BG SAMPLE SITE RIGHT RADIAL; BG TOTAL HEMOGLOBIN 9.8 g/dL (12.0-18.0); BG VENT MODE VENT - PRVC
[2021-07-11] MEDS: FAMOTIDINE 20MG TABLET PO SCH (20:10)
[2021-07-12] VITALS (74 sets, daily range): BP systolic 94–155; BP diastolic 42–76
[2021-07-12] MEDS: IPRATROPIUM/ALBUTEROL 0.5-3(2.5)MG/3ML NEB HHN SCH ×6 (00:23→21:19)
[2021-07-12] MEDS: METOCLOPRAMIDE HCL 10MG/2ML VIAL IV SCH ×5 (00:30→23:03)
[2021-07-12] MEDS: DILTIAZEM HCL 60MG TABLET PO SCH ×5 (00:31→22:56)
[2021-07-12] MEDS: PROPOFOL 10MG/ML 100ML 100 ML IV PRN ×4 (00:49→20:23)
[2021-07-12] MEDS: METHYLPREDNISOLONE SOD SUCC 40 MG/ML VIAL IV SCH ×3 (00:58→17:27)
[2021-07-12 06:22] LABS: HEMATOCRIT. 28.1 % (42.0-52.0); HEMOGLOBIN. 8.9 g/dL (14.0-18.0); MEAN CORPUSCULAR HEMOGLOBIN 30.3 pg (28.0-32.0); MEAN CORPUSCULAR VOLUME 95.5 fL (80.0-94.0); MEAN PLATELET VOLUME 9.5 fl (7.4-10.4); PLATELET 374 x1000/uL (130-400); RED BLOOD CELL COUNT 2.94 mill/uL (4.7-6.1); RED CELL DISTRIBUTION WIDTH 15.6 % (11.6-14.6)
[2021-07-12] MEDS: SEVELAMER CARBONATE 800 MG TABLET PO SCH ×2 (06:42→13:19)
[2021-07-12] MEDS: PHENYLEPHRINE 100 MG in DEXT 5% WATER 240 ML IV PRN ×2 (07:26→20:24)
[2021-07-12] MEDS: ASPIRIN 81MG TABLET PO SCH (08:30)
[2021-07-12] MEDS: ASCORBIC ACID 500 MG TABLET PO SCH ×2 (08:30→20:19)
[2021-07-12] MEDS: CHOLECALCIFEROL (D3) 1000 UNIT TABLET PO SCH (08:31)
[2021-07-12] MEDS: DOCUSATE SODIUM SUGAR FREE 100MG/10ML UDC NG PRN (08:31)
[2021-07-12] MEDS: GUAIFENESIN/DM 600MG/30MG ER TAB 12HR PO SCH ×2 (08:31→20:18)
[2021-07-12] MEDS: ENOXAPARIN 40MG/0.4ML SYR SUBCUT SCH (08:32)
[2021-07-12] MEDS: ZINC SULFATE 220 MG ( 50 ) CAPSULE PO SCH (08:37)
[2021-07-12] MEDS: MIDAZOLAM HCL 100 MG in SODIUM CHLORIDE 0.9% 80 ML IV PRN ×3 (09:16→20:21)
[2021-07-12 09:30] LABS: BG BASE EXCESS -5.5 mmol/L (-2.0-2.0); BG CARBOXYHEMOGLOBIN 0.7 % (0.5-1.5); BG DEOXYHEMOGLOBIN 8.5 % (0.0-5.0); BG FRACTION INSPIRED OXYGEN 90; BG HCO3 ACT 21.2 mmol/L (22.0-26.0); BG METHEMOGLOBIN 0.2 % (0.0-1.5); BG OXYGEN SATURATION 91.4 % (92.0-98.5); BG OXYHEMOGLOBIN 90.6 % (94.0-97.0); BG PCO2 47.4 mmHg (35.0-45.0); BG PH 7.269 (7.350-7.450); BG PO2 67.6 mmHg (75.0-100.0); BG SAMPLE SITE RIGHT RADIAL; BG TOTAL HEMOGLOBIN 9.7 g/dL (12.0-18.0); BG VENT MODE VENT - PRVC
[2021-07-12] MEDS: FENTANYL CITRATE/PF 2,500 MCG in SODIUM CHLORIDE 0.9% 200 ML IV PRN ×2 (10:55→17:29)
[2021-07-12 13:00] LABS: HEMATOCRIT. 28.5 % (42.0-52.0); HEMOGLOBIN. 8.8 g/dL (14.0-18.0); MEAN CORPUSCULAR VOLUME 96.5 fL (80.0-94.0); MEAN PLATELET VOLUME 9.3 fl (7.4-10.4); PLATELET 340 x1000/uL (130-400); RED BLOOD CELL COUNT 2.95 mill/uL (4.7-6.1); RED CELL DISTRIBUTION WIDTH 15.5 % (11.6-14.6)
[2021-07-12] MEDS: LACTULOSE 20G/30ML UDC NG PRN (13:20)
[2021-07-12 13:27] LABS: PLATELET ESTIMATE NORMAL
[2021-07-12 13:56] LABS: PLATELET ESTIMATE NORMAL
[2021-07-12 14:17] LABS: PHOSPHORUS 8.5 mg/dL (2.5-4.9)
[2021-07-12] MEDS ORDERED: BISACODYL 10MG SUPP PR PRN (14:45)
[2021-07-12] MEDS ORDERED: BISACODYL 10MG SUPP PR NR (14:45)
[2021-07-12] MEDS ORDERED: PROPOFOL 10MG/ML 100ML 100 ML IV PRN (14:45)
[2021-07-12] MEDS: CALCIUM ACETATE 667MG CAPSULE PO SCH (17:25)
[2021-07-12 20:00] LABS: INR 1.1; PROTHROMBIN TIME 11.5 sec (9.6-11.0)
[2021-07-12] MEDS: FAMOTIDINE 20MG TABLET PO SCH (20:18)
[2021-07-13] VITALS (95 sets, daily range): BP systolic 75–145; BP diastolic 28–71
[2021-07-13] MEDS: IPRATROPIUM/ALBUTEROL 0.5-3(2.5)MG/3ML NEB HHN SCH ×6 (00:49→20:19)
[2021-07-13] MEDS: METHYLPREDNISOLONE SOD SUCC 40 MG/ML VIAL IV SCH ×3 (01:03→17:24)
[2021-07-13] MEDS: FENTANYL CITRATE/PF 2,500 MCG in SODIUM CHLORIDE 0.9% 200 ML IV PRN ×3 (01:09→18:26)
[2021-07-13] MEDS: MIDAZOLAM HCL 100 MG in SODIUM CHLORIDE 0.9% 80 ML IV PRN ×3 (02:41→18:26)
[2021-07-13] MEDS: PROPOFOL 10MG/ML 100ML 100 ML IV PRN ×5 (02:45→20:11)
[2021-07-13 05:18] LABS: HEMATOCRIT. 26.4 % (42.0-52.0); HEMOGLOBIN. 8.7 g/dL (14.0-18.0); MEAN CORPUSCULAR HEMOGLOBIN 31.1 pg (28.0-32.0); MEAN PLATELET VOLUME 9.5 fl (7.4-10.4); PLATELET 308 x1000/uL (130-400); RED BLOOD CELL COUNT 2.78 mill/uL (4.7-6.1); RED CELL DISTRIBUTION WIDTH 15.9 % (11.6-14.6)
[2021-07-13] MEDS: DILTIAZEM HCL 60MG TABLET PO SCH ×3 (05:19→17:24)
[2021-07-13] MEDS: METOCLOPRAMIDE HCL 10MG/2ML VIAL IV SCH ×3 (05:21→17:24)
[2021-07-13 08:29] LABS: BG BASE EXCESS -7.2 mmol/L (-2.0-2.0); BG CARBOXYHEMOGLOBIN 0.4 % (0.5-1.5); BG HCO3 ACT 21.7 mmol/L (22.0-26.0); BG METHEMOGLOBIN 0.6 % (0.0-1.5); BG OXYGEN SATURATION 89.9 % (92.0-98.5); BG PCO2 63.4 mmHg (35.0-45.0); BG PH 7.152 (7.350-7.450); BG PO2 72.3 mmHg (75.0-100.0); BG SAMPLE SITE RIGHT RADIAL; BG TOTAL HEMOGLOBIN 9.1 g/dL (12.0-18.0); BG VENT MODE VEN- PRVC
[2021-07-13] MEDS: CHOLECALCIFEROL (D3) 1000 UNIT TABLET PO SCH (08:46)
[2021-07-13] MEDS: ZINC SULFATE 220 MG ( 50 ) CAPSULE PO SCH (08:46)
[2021-07-13] MEDS: ASCORBIC ACID 500 MG TABLET PO SCH ×2 (08:46→21:58)
[2021-07-13 08:59] LABS: PLATELET ESTIMATE NORMAL
[2021-07-13] MEDS: CALCIUM ACETATE 667MG CAPSULE PO SCH ×3 (09:15→17:24)
[2021-07-13] MEDS ORDERED: DEXTROSE 50% WATER 50ML SYRINGE IV NR (20:30)
[2021-07-13] MEDS ORDERED: INSULIN REGULAR (HUMULIN R) 300UNITS/3ML VIAL IV NR (20:30)
[2021-07-13] MEDS ORDERED: SODIUM BICARBONATE 8.4% 1 MEQ/ML 50ML SYR IV NR (20:30)
[2021-07-13] MEDS ORDERED: CALCIUM CHLORIDE 1,000 MG in DEXT 5% WATER 90 ML IV NR (21:30)
[2021-07-13] MEDS: LACTULOSE 20G/30ML UDC PO SCH (21:51)
[2021-07-13] MEDS: FAMOTIDINE 20MG TABLET PO SCH (21:51)
[2021-07-14] VITALS (96 sets, daily range): BP systolic 83–146; BP diastolic 16–75
[2021-07-14] MEDS: METOCLOPRAMIDE HCL 10MG/2ML VIAL IV SCH ×5 (00:17→23:17)
[2021-07-14] MEDS: IPRATROPIUM/ALBUTEROL 0.5-3(2.5)MG/3ML NEB HHN SCH ×6 (00:28→20:37)
[2021-07-14] MEDS: PROPOFOL 10MG/ML 100ML 100 ML IV PRN ×7 (02:33→23:32)
[2021-07-14] MEDS: METHYLPREDNISOLONE SOD SUCC 40 MG/ML VIAL IV SCH ×3 (02:39→16:50)
[2021-07-14] MEDS: MIDAZOLAM HCL 100 MG in SODIUM CHLORIDE 0.9% 80 ML IV PRN ×3 (03:37→18:00)
[2021-07-14] MEDS: FENTANYL CITRATE/PF 2,500 MCG in SODIUM CHLORIDE 0.9% 200 ML IV PRN ×3 (03:38→18:59)
[2021-07-14] MEDS: PHENYLEPHRINE 100 MG in DEXT 5% WATER 240 ML IV PRN (05:51)
[2021-07-14] MEDS: DILTIAZEM HCL 60MG TABLET PO SCH ×5 (06:00→23:17)
[2021-07-14] MEDS ORDERED: LIDOCAINE HCL/EPINEPHRINE 1%-EPI 1:100,000 20 ML VIAL INFIL ONE (06:30)
[2021-07-14] MEDS: LACTULOSE 20G/30ML UDC PO SCH ×3 (06:31→21:33)
[2021-07-14] MEDS: CALCIUM ACETATE 667MG CAPSULE PO SCH ×3 (06:32→16:49)
[2021-07-14 07:05] LABS: MEAN CORPUSCULAR HEMOGLOBIN 30.6 pg (28.0-32.0); MEAN CORPUSCULAR VOLUME 94.7 fL (80.0-94.0); MEAN PLATELET VOLUME 9.4 fl (7.4-10.4); PLATELET 302 x1000/uL (130-400); RED BLOOD CELL COUNT 2.96 mill/uL (4.7-6.1); RED CELL DISTRIBUTION WIDTH 15.9 % (11.6-14.6)
[2021-07-14] MEDS: CHOLECALCIFEROL (D3) 1000 UNIT TABLET PO SCH (08:09)
[2021-07-14] MEDS: ZINC SULFATE 220 MG ( 50 ) CAPSULE PO SCH (08:09)
[2021-07-14] MEDS: ASCORBIC ACID 500 MG TABLET PO SCH ×2 (08:09→21:33)
[2021-07-14 11:13] LABS: BG BASE EXCESS -4.9 mmol/L (-2.0-2.0); BG CARBOXYHEMOGLOBIN 1.6 % (0.5-1.5); BG DEOXYHEMOGLOBIN 27.7 % (0.0-5.0); BG FRACTION INSPIRED OXYGEN 100; BG HCO3 ACT 23.3 mmol/L (22.0-26.0); BG METHEMOGLOBIN 0.3 % (0.0-1.5); BG OXYGEN SATURATION 71.8 % (92.0-98.5); BG OXYHEMOGLOBIN 70.4 % (94.0-97.0); BG PCO2 59.4 mmHg (35.0-45.0); BG PH 7.211 (7.350-7.450); BG PO2 45.9 mmHg (75.0-100.0); BG SAMPLE SITE RIGHT RADIAL; BG TOTAL HEMOGLOBIN 10.3 g/dL (12.0-18.0); BG VENT MODE VENT - PRVC
[2021-07-14] MEDS ORDERED: LIDOCAINE HCL/EPINEPHRINE 1%-EPI 1:100,000 50 ML VIAL INFIL NR (13:00)
[2021-07-14 14:53] LABS: PLATELET ESTIMATE NORMAL
[2021-07-14] MEDS: FAMOTIDINE 20MG TABLET PO SCH (21:33)
[2021-07-15] VITALS (96 sets, daily range): BP systolic 98–146; BP diastolic 21–85
[2021-07-15] MEDS: IPRATROPIUM/ALBUTEROL 0.5-3(2.5)MG/3ML NEB HHN SCH ×6 (00:42→21:18)
[2021-07-15] MEDS: MIDAZOLAM HCL 100 MG in SODIUM CHLORIDE 0.9% 80 ML IV PRN ×3 (01:18→15:40)
[2021-07-15] MEDS: PHENYLEPHRINE 100 MG in DEXT 5% WATER 240 ML IV PRN (02:24)
[2021-07-15] MEDS: FENTANYL CITRATE/PF 2,500 MCG in SODIUM CHLORIDE 0.9% 200 ML IV PRN ×3 (02:49→18:12)
[2021-07-15] MEDS: PROPOFOL 10MG/ML 100ML 100 ML IV PRN ×6 (02:51→18:30)
[2021-07-15 05:03] LABS: HEMATOCRIT. 25.1 % (42.0-52.0); HEMOGLOBIN. 8.2 g/dL (14.0-18.0); MEAN CORPUSCULAR HEMOGLOBIN 31.2 pg (28.0-32.0); MEAN CORPUSCULAR VOLUME 95.3 fL (80.0-94.0); MEAN PLATELET VOLUME 9.2 fl (7.4-10.4); PLATELET 267 x1000/uL (130-400); RED BLOOD CELL COUNT 2.64 mill/uL (4.7-6.1); RED CELL DISTRIBUTION WIDTH 16.1 % (11.6-14.6)
[2021-07-15] MEDS: LACTULOSE 20G/30ML UDC PO SCH ×3 (05:18→21:28)
[2021-07-15] MEDS: DILTIAZEM HCL 60MG TABLET PO SCH ×3 (05:19→18:00)
[2021-07-15] MEDS: METOCLOPRAMIDE HCL 10MG/2ML VIAL IV SCH ×3 (05:19→18:28)
[2021-07-15] MEDS: METHYLPREDNISOLONE SOD SUCC 40 MG/ML VIAL IV SCH ×2 (08:15→18:27)
[2021-07-15] MEDS: CHOLECALCIFEROL (D3) 1000 UNIT TABLET PO SCH (08:15)
[2021-07-15] MEDS: ASCORBIC ACID 500 MG TABLET PO SCH ×2 (08:16→21:27)
[2021-07-15] MEDS: CALCIUM ACETATE 667MG CAPSULE PO SCH ×3 (08:16→18:28)
[2021-07-15] MEDS: ZINC SULFATE 220 MG ( 50 ) CAPSULE PO SCH (08:16)
[2021-07-15 10:42] LABS: BG CARBOXYHEMOGLOBIN 0.8 % (0.5-1.5); BG FRACTION INSPIRED OXYGEN 100; BG HCO3 ACT 18.2 mmol/L (22.0-26.0); BG METHEMOGLOBIN 0.1 % (0.0-1.5); BG OXYGEN SATURATION 91.9 % (92.0-98.5); BG OXYHEMOGLOBIN 91.1 % (94.0-97.0); BG PH 7.276 (7.350-7.450); BG PO2 74.5 mmHg (75.0-100.0); BG SAMPLE SITE RIGHT RADIAL; BG TOTAL HEMOGLOBIN 8.8 g/dL (12.0-18.0); BG VENT MODE VENT - PRVC
[2021-07-15 11:05] LABS: PLATELET ESTIMATE NORMAL
[2021-07-15] MEDS: FAMOTIDINE 20MG TABLET PO SCH (21:27)
[2021-07-16] VITALS (90 sets, daily range): BP systolic 92–185; BP diastolic 51–104
[2021-07-16] MEDS: PROPOFOL 10MG/ML 100ML 100 ML IV PRN ×6 (01:04→23:13)
[2021-07-16] MEDS: IPRATROPIUM/ALBUTEROL 0.5-3(2.5)MG/3ML NEB HHN SCH ×6 (01:05→20:41)
[2021-07-16] MEDS: FENTANYL CITRATE/PF 2,500 MCG in SODIUM CHLORIDE 0.9% 200 ML IV PRN ×4 (01:05→23:14)
[2021-07-16] MEDS: METOCLOPRAMIDE HCL 10MG/2ML VIAL IV SCH ×5 (01:06→23:14)
[2021-07-16] MEDS: MIDAZOLAM HCL 100 MG in SODIUM CHLORIDE 0.9% 80 ML IV PRN ×4 (01:07→19:05)
[2021-07-16 05:46] LABS: HEMATOCRIT. 26.2 % (42.0-52.0); HEMOGLOBIN. 8.7 g/dL (14.0-18.0); MEAN CORPUSCULAR HEMOGLOBIN 31.5 pg (28.0-32.0); MEAN CORPUSCULAR VOLUME 94.7 fL (80.0-94.0); MEAN PLATELET VOLUME 9.5 fl (7.4-10.4); PLATELET 269 x1000/uL (130-400); RED BLOOD CELL COUNT 2.76 mill/uL (4.7-6.1); RED CELL DISTRIBUTION WIDTH 16.1 % (11.6-14.6)
[2021-07-16] MEDS: LACTULOSE 20G/30ML UDC PO SCH ×2 (06:00→14:00)
[2021-07-16] MEDS: DILTIAZEM HCL 60MG TABLET PO SCH ×5 (06:00→23:14)
[2021-07-16] MEDS: CALCIUM ACETATE 667MG CAPSULE PO SCH ×3 (06:14→17:36)
[2021-07-16] MEDS: METHYLPREDNISOLONE SOD SUCC 40 MG/ML VIAL IV SCH ×2 (08:12→17:36)
[2021-07-16] MEDS: ASCORBIC ACID 500 MG TABLET PO SCH ×3 (08:16→20:45)
[2021-07-16] MEDS: ZINC SULFATE 220 MG ( 50 ) CAPSULE PO SCH ×2 (08:16→08:29)
[2021-07-16] MEDS: CHOLECALCIFEROL (D3) 1000 UNIT TABLET PO SCH ×2 (08:16→08:29)
[2021-07-16 10:03] LABS: BG BASE EXCESS -9.7 mmol/L (-2.0-2.0); BG CARBOXYHEMOGLOBIN 0.8 % (0.5-1.5); BG FRACTION INSPIRED OXYGEN 100; BG HCO3 ACT 16.1 mmol/L (22.0-26.0); BG METHEMOGLOBIN 0.3 % (0.0-1.5); BG OXYGEN SATURATION 86.9 % (92.0-98.5); BG OXYHEMOGLOBIN 85.9 % (94.0-97.0); BG PCO2 34.8 mmHg (35.0-45.0); BG PH 7.283 (7.350-7.450); BG PO2 61.4 mmHg (75.0-100.0); BG SAMPLE SITE LEFT RADIAL; BG TOTAL RESPIRATORY RATE 40 b/min; BG VENT MODE VENT- PRVC
[2021-07-16 10:15] LABS: NUCLEATED RED BLOOD CELLS 1 /100 WBC; PLATELET ESTIMATE NORMAL
[2021-07-16] MEDS ORDERED: VANCOMYCIN 2,000 MG in DEXT 5% WATER 500 ML IV NR (15:00)
[2021-07-16] MEDS: CEFEPIME 1,000 MG in DEXTROSE 5% WATER 50 ML IV SCH (15:01)
[2021-07-16] MEDS ORDERED: ROCURONIUM BROMIDE 10MG/ML VIAL 5ML IV ONE (16:18)
[2021-07-16] MEDS ORDERED: VECURONIUM BROMIDE 10 MG/VIAL IV NR (19:30)
[2021-07-16] MEDS: FAMOTIDINE 20MG TABLET PO SCH (20:45)
[2021-07-17] VITALS (102 sets, daily range): BP systolic 59–145; BP diastolic 29–81
[2021-07-17] MEDS: IPRATROPIUM/ALBUTEROL 0.5-3(2.5)MG/3ML NEB HHN SCH ×6 (00:21→20:35)
[2021-07-17] MEDS: MIDAZOLAM HCL 100 MG in SODIUM CHLORIDE 0.9% 80 ML IV PRN ×3 (02:23→16:36)
[2021-07-17] MEDS: CEFEPIME 1,000 MG in DEXTROSE 5% WATER 50 ML IV SCH ×2 (02:23→13:57)
[2021-07-17] MEDS: PHENYLEPHRINE 100 MG in DEXT 5% WATER 240 ML IV PRN ×3 (04:58→23:31)
[2021-07-17] MEDS: CALCIUM ACETATE 667MG CAPSULE PO SCH ×3 (06:34→16:32)
[2021-07-17] MEDS: METOCLOPRAMIDE HCL 10MG/2ML VIAL IV SCH ×3 (06:35→17:18)
[2021-07-17] MEDS: DILTIAZEM HCL 60MG TABLET PO SCH ×2 (06:35→11:58)
[2021-07-17] MEDS: PROPOFOL 10MG/ML 100ML 100 ML IV PRN ×4 (06:37→20:17)
[2021-07-17] MEDS: FENTANYL CITRATE/PF 2,500 MCG in SODIUM CHLORIDE 0.9% 200 ML IV PRN ×3 (06:39→20:18)
[2021-07-17] MEDS: CHOLECALCIFEROL (D3) 1000 UNIT TABLET PO SCH (08:04)
[2021-07-17] MEDS: LACTULOSE 20G/30ML UDC PO SCH (08:04)
[2021-07-17] MEDS: METHYLPREDNISOLONE SOD SUCC 40 MG/ML VIAL IV SCH ×2 (08:04→16:32)
[2021-07-17] MEDS: ASCORBIC ACID 500 MG TABLET PO SCH ×2 (08:06→20:12)
[2021-07-17] MEDS: ZINC SULFATE 220 MG ( 50 ) CAPSULE PO SCH (08:06)
[2021-07-17 08:58] LABS: HEMATOCRIT. 30.1 % (42.0-52.0); HEMOGLOBIN. 9.7 g/dL (14.0-18.0); MEAN CORPUSCULAR HEMOGLOBIN 30.9 pg (28.0-32.0); MEAN CORPUSCULAR VOLUME 96.3 fL (80.0-94.0); MEAN PLATELET VOLUME 9.4 fl (7.4-10.4); PLATELET 241 x1000/uL (130-400); RED BLOOD CELL COUNT 3.13 mill/uL (4.7-6.1); RED CELL DISTRIBUTION WIDTH 16.6 % (11.6-14.6)
[2021-07-17 09:17] LABS: BG BASE EXCESS -2.1 mmol/L (-2.0-2.0); BG CARBOXYHEMOGLOBIN 0.6 % (0.5-1.5); BG DEOXYHEMOGLOBIN 13.7 % (0.0-5.0); BG FRACTION INSPIRED OXYGEN 100; BG HCO3 ACT 22.3 mmol/L (22.0-26.0); BG METHEMOGLOBIN 0.1 % (0.0-1.5); BG OXYGEN SATURATION 86.2 % (92.0-98.5); BG OXYHEMOGLOBIN 85.6 % (94.0-97.0); BG PCO2 36.5 mmHg (35.0-45.0); BG PH 7.404 (7.350-7.450); BG PO2 55.3 mmHg (75.0-100.0); BG SAMPLE SITE RIGHT RADIAL; BG TOTAL HEMOGLOBIN 10.2 g/dL (12.0-18.0); BG TOTAL RESPIRATORY RATE 40 b/min; BG VENT MODE VENT- PRVC
[2021-07-17 10:50] LABS: NUCLEATED RED BLOOD CELLS 7 /100 WBC
[2021-07-17 10:54] LABS: PLATELET ESTIMATE NORMAL
[2021-07-17] MEDS ORDERED: VANCOMYCIN 500 MG PREMIX 100 ML IV SCH (11:00)
[2021-07-17] MEDS: FAMOTIDINE 20MG TABLET PO SCH (20:12)
[2021-07-18] VITALS (98 sets, daily range): BP systolic 68–226; BP diastolic 34–121
[2021-07-18] MEDS: METOCLOPRAMIDE HCL 10MG/2ML VIAL IV SCH ×4 (00:05→17:08)
[2021-07-18] MEDS: PROPOFOL 10MG/ML 100ML 100 ML IV PRN ×3 (00:06→12:37)
[2021-07-18] MEDS: MIDAZOLAM HCL 100 MG in SODIUM CHLORIDE 0.9% 80 ML IV PRN ×3 (00:07→12:30)
[2021-07-18] MEDS: IPRATROPIUM/ALBUTEROL 0.5-3(2.5)MG/3ML NEB HHN SCH ×5 (00:41→20:52)
[2021-07-18] MEDS: CEFEPIME 1,000 MG in DEXTROSE 5% WATER 50 ML IV SCH ×2 (04:33→14:00)
[2021-07-18] MEDS: CALCIUM ACETATE 667MG CAPSULE PO SCH ×3 (06:09→17:07)
[2021-07-18] MEDS: FENTANYL CITRATE/PF 2,500 MCG in SODIUM CHLORIDE 0.9% 200 ML IV PRN (06:10)
[2021-07-18] MEDS: PHENYLEPHRINE 100 MG in DEXT 5% WATER 240 ML IV PRN ×3 (06:11→20:09)
[2021-07-18] MEDS ORDERED: PROPOFOL 10MG/ML 100ML 100 ML IV PRN (08:45)
[2021-07-18] MEDS: ZINC SULFATE 220 MG ( 50 ) CAPSULE PO SCH (09:47)
[2021-07-18] MEDS: LACTULOSE 20G/30ML UDC PO SCH (09:47)
[2021-07-18] MEDS: CHOLECALCIFEROL (D3) 1000 UNIT TABLET PO SCH (09:47)
[2021-07-18] MEDS: METHYLPREDNISOLONE SOD SUCC 40 MG/ML VIAL IV SCH ×2 (09:47→17:08)
[2021-07-18] MEDS: ASCORBIC ACID 500 MG TABLET PO SCH ×2 (09:47→21:10)
[2021-07-18 12:34] LABS: BG BASE EXCESS -17.4 mmol/L (-2.0-2.0); BG CARBOXYHEMOGLOBIN 0.7 % (0.5-1.5); BG DEOXYHEMOGLOBIN 1.8 % (0.0-5.0); BG FRACTION INSPIRED OXYGEN 100; BG HCO3 ACT 10.9 mmol/L (22.0-26.0); BG METHEMOGLOBIN 0.8 % (0.0-1.5); BG OXYGEN SATURATION 98.2 % (92.0-98.5); BG OXYHEMOGLOBIN 96.7 % (94.0-97.0); BG PCO2 34.8 mmHg (35.0-45.0); BG PH 7.112 (7.350-7.450); BG PO2 159.1 mmHg (75.0-100.0); BG SAMPLE SITE RIGHT RADIAL; BG TOTAL RESPIRATORY RATE 40 b/min; BG VENT MODE VENT- PRVC
[2021-07-18] MEDS ORDERED: SODIUM BICARBONATE 8.4% 1 MEQ/ML 50ML SYR IV NR (12:45)
[2021-07-18] MEDS ORDERED: SODIUM BICARBONATE 8.4% 1 MEQ/ML 50ML SYR IV ONE (12:56)
[2021-07-18] MEDS ORDERED: INSULIN REGULAR (HUMULIN R) 300UNITS/3ML VIAL IV SCH (13:30)
[2021-07-18] MEDS ORDERED: SODIUM POLYSTYRENE SULFONATE 15 G/60 ML BOT PO SCH (13:30)
[2021-07-18] MEDS ORDERED: DEXTROSE 50% WATER 50ML SYRINGE IV SCH (13:30)
[2021-07-18] MEDS ORDERED: SODIUM BICARBONATE 8.4% 1 MEQ/ML 50ML SYR IV SCH (13:30)
[2021-07-18] MEDS ORDERED: CALCIUM GLUCONATE 1GM PREMIX 50 ML IV SCH (14:30)
[2021-07-18] MEDS: NOREPINEPHRINE 32 MG in DEXT 5% WATER 218 ML IV PRN (14:33)
[2021-07-18] MEDS ORDERED: VANCOMYCIN 1500MG in DEXTROSE 5% WATER 250ML IV NR (20:00)
[2021-07-18] MEDS: FAMOTIDINE 20MG TABLET PO SCH (21:10)
[2021-07-19] VITALS (97 sets, daily range): BP systolic 33–207; BP diastolic 23–109
[2021-07-19] MEDS: IPRATROPIUM/ALBUTEROL 0.5-3(2.5)MG/3ML NEB HHN SCH ×5 (00:21→20:57)
[2021-07-19] MEDS: METOCLOPRAMIDE HCL 10MG/2ML VIAL IV SCH ×4 (01:20→18:45)
[2021-07-19] MEDS: PHENYLEPHRINE 100 MG in DEXT 5% WATER 240 ML IV PRN ×4 (01:45→21:02)
[2021-07-19] MEDS: CEFEPIME 1,000 MG in DEXTROSE 5% WATER 50 ML IV SCH ×2 (02:47→14:00)
[2021-07-19] MEDS: FENTANYL CITRATE/PF 2,500 MCG in SODIUM CHLORIDE 0.9% 200 ML IV PRN (02:52)
[2021-07-19 07:54] LABS: BG BASE EXCESS -17.5 mmol/L (-2.0-2.0); BG CARBOXYHEMOGLOBIN 1.5 % (0.5-1.5); BG DEOXYHEMOGLOBIN 1.8 % (0.0-5.0); BG OXYGEN SATURATION 98.1 % (92.0-98.5); BG OXYHEMOGLOBIN 91.7 % (94.0-97.0); BG PCO2 29.2 mmHg (35.0-45.0); BG PH 7.152 (7.350-7.450); BG PO2 139.6 mmHg (75.0-100.0); BG SAMPLE SITE RIGHT RADIAL; BG TOTAL HEMOGLOBIN 11.7 g/dL (12.0-18.0); BG VENT MODE VENT- PRVC
[2021-07-19] MEDS ORDERED: SODIUM BICARBONATE 8.4% 1 MEQ/ML 50ML SYR IV NR ×2 (08:00→17:15)
[2021-07-19 08:28] LABS: HEMATOCRIT. 29.7 % (42.0-52.0); HEMOGLOBIN. 9.1 g/dL (14.0-18.0); MEAN CORPUSCULAR HEMOGLOBIN 30.6 pg (28.0-32.0); MEAN CORPUSCULAR VOLUME 100.2 fL (80.0-94.0); MEAN PLATELET VOLUME 9.8 fl (7.4-10.4); PLATELET 210 x1000/uL (130-400); RED BLOOD CELL COUNT 2.97 mill/uL (4.7-6.1); RED CELL DISTRIBUTION WIDTH 18.6 % (11.6-14.6)
[2021-07-19] MEDS: LACTULOSE 20G/30ML UDC PO SCH (08:51)
[2021-07-19] MEDS: CALCIUM ACETATE 667MG CAPSULE PO SCH ×3 (08:52→17:00)
[2021-07-19] MEDS: CHOLECALCIFEROL (D3) 1000 UNIT TABLET PO SCH (08:53)
[2021-07-19] MEDS: MIDAZOLAM HCL 100 MG in SODIUM CHLORIDE 0.9% 80 ML IV PRN (08:53)
[2021-07-19] MEDS: ZINC SULFATE 220 MG ( 50 ) CAPSULE PO SCH (08:53)
[2021-07-19] MEDS ORDERED: METHYLPREDNISOLONE SOD SUCC 40 MG/ML VIAL IV SCH (09:00)
[2021-07-19] MEDS ORDERED: DEXTROSE 50% WATER 50ML SYRINGE IV PRN (10:15)
[2021-07-19] MEDS ORDERED: SODIUM BICARBONATE 150 MEQ in DEXTROSE 5% WATER 1,000 ML IV SCH (11:00)
[2021-07-19] MEDS: VASOPRESSIN 20 UNIT in SODIUM CHLORIDE 0.9% 99 ML IV PRN ×2 (13:43→20:08)
[2021-07-19 14:19] LABS: NUCLEATED RED BLOOD CELLS 55 /100 WBC; PLATELET ESTIMATE NORMAL
[2021-07-19] MEDS ORDERED: DEXTROSE 50% WATER 50ML SYRINGE IV ONE (15:07)
[2021-07-19] MEDS ORDERED: AMIODARONE HCL 50MG/ML 3ML VIAL IV ONE (15:07)
[2021-07-19] MEDS ORDERED: EPINEPHRINE 0.1MG/ML (1:10,000) 10ML SYR ONE (15:07)
[2021-07-19] MEDS: NOREPINEPHRINE 32 MG in DEXT 5% WATER 218 ML IV PRN ×2 (15:09→23:17)
[2021-07-19] MEDS ORDERED: CALCIUM GLUCONATE 1,000 MG in DEXT 5% WATER 90 ML IV ONE (17:15)
[2021-07-19] MEDS ORDERED: INSULIN REGULAR (HUMULIN R) 300UNITS/3ML VIAL IV NR (17:15)
[2021-07-19] MEDS ORDERED: DEXTROSE 50% WATER 50ML SYRINGE IV NR (17:15)
[2021-07-19] MEDS ORDERED: CALCIUM GLUCONATE 1GM PREMIX 50 ML IV NR (18:00)
== END 2021-07-20 00:02 | DRG 720 ==
LOC: ER 07:18 → EDBEDREQTM 07:42 → MICUSO 09:14 → EDBEDREQ 09:51 → EDBEDREQTM 09:51 → EDBEDREQSVC 09:51 → 7WST 22:11 → MICUSO 06-23 05:37
PROVIDERS: ADMIT Internal Medicine; ATTEND Internal Medicine
PROC: 5A09357 Assistance with Respiratory Ventilation, Less than 24 Consecutive Hours, Continuous Positive Airway Pressure (ICD-10-PCS; principal; 2021-06-20)
PROC: 5A09457 Assistance with Respiratory Ventilation, 24-96 Consecutive Hours, Continuous Positive Airway Pressure (ICD-10-PCS; 2021-06-20)
PROC: 5A09357 Assistance with Respiratory Ventilation, Less than 24 Consecutive Hours, Continuous Positive Airway Pressure (ICD-10-PCS; 2021-06-23)
PROC: 05HY33Z Insertion of Infusion Device into Upper Vein, Percutaneous Approach (ICD-10-PCS; 2021-06-23)
PROC: B54MZZA Ultrasonography of Right Upper Extremity Veins, Guidance (ICD-10-PCS; 2021-06-23)
PROC: 5A1955Z Respiratory Ventilation, Greater than 96 Consecutive Hours (ICD-10-PCS; 2021-06-24)
PROC: 0BH17EZ Insertion of Endotracheal Airway into Trachea, Via Natural or Artificial Opening (ICD-10-PCS; 2021-06-24)
PROC: 05HY33Z Insertion of Infusion Device into Upper Vein, Percutaneous Approach (ICD-10-PCS; 2021-06-26)
PROC: B54MZZA Ultrasonography of Right Upper Extremity Veins, Guidance (ICD-10-PCS; 2021-06-26)
PROC: 5A1D70Z Performance of Urinary Filtration, Intermittent, Less than 6 Hours Per Day (ICD-10-PCS; 2021-06-27)
PROC: 5A1D70Z Performance of Urinary Filtration, Intermittent, Less than 6 Hours Per Day (ICD-10-PCS; 2021-06-28)
PROC: 5A1D70Z Performance of Urinary Filtration, Intermittent, Less than 6 Hours Per Day (ICD-10-PCS; 2021-07-01)
PROC: 0BH17EZ Insertion of Endotracheal Airway into Trachea, Via Natural or Artificial Opening (ICD-10-PCS; 2021-07-06)
PROC: 5A1955Z Respiratory Ventilation, Greater than 96 Consecutive Hours (ICD-10-PCS; 2021-07-06)
PROC: 5A1D70Z Performance of Urinary Filtration, Intermittent, Less than 6 Hours Per Day (ICD-10-PCS; 2021-07-08)
PROC: 5A1D70Z Performance of Urinary Filtration, Intermittent, Less than 6 Hours Per Day (ICD-10-PCS; 2021-07-10)
PROC: 0W9930Z Drainage of Right Pleural Cavity with Drainage Device, Percutaneous Approach (ICD-10-PCS; 2021-07-14)
PROC: 5A1D70Z Performance of Urinary Filtration, Intermittent, Less than 6 Hours Per Day (ICD-10-PCS; 2021-07-14)
PROC: 5A1D70Z Performance of Urinary Filtration, Intermittent, Less than 6 Hours Per Day (ICD-10-PCS; 2021-07-17)
PROC: 5A1D70Z Performance of Urinary Filtration, Intermittent, Less than 6 Hours Per Day (ICD-10-PCS; 2021-07-18)
PROC: 5A12012 Performance of Cardiac Output, Single, Manual (ICD-10-PCS; 2021-07-19)
PROC: 5A1D70Z Performance of Urinary Filtration, Intermittent, Less than 6 Hours Per Day (ICD-10-PCS; 2021-07-19)
PROC: 5A12012 Performance of Cardiac Output, Single, Manual (ICD-10-PCS; 2021-07-20)
DX: A41.89 Other specified sepsis (principal); J96.01 Acute respiratory failure with hypoxia; N17.0 Acute kidney failure with tubular necrosis; J12.82 Pneumonia due to coronavirus disease 2019; R65.21 Severe sepsis with septic shock; G93.41 Metabolic encephalopathy; E44.1 Mild protein-calorie malnutrition; E87.0 Hyperosmolality and hypernatremia; L89.816 Pressure-induced deep tissue damage of head; U07.1 COVID-19; M62.82 Rhabdomyolysis; R65.20 Severe sepsis without septic shock; D63.8 Anemia in other chronic diseases classified elsewhere; E66.01 Morbid (severe) obesity due to excess calories; E86.0 Dehydration; E87.2 Acidosis; E87.5 Hyperkalemia; I13.10 Hypertensive heart and chronic kidney disease without heart failure, with stage 1 through stage 4 chronic kidney disease, or unspecified chronic kidney disease; I48.4 Atypical atrial flutter; J93.9 Pneumothorax, unspecified; R74.01 Elevation of levels of liver transaminase levels; S00.81XA Abrasion of other part of head, initial encounter; X58.XXXA Exposure to other specified factors, initial encounter; N18.9 Chronic kidney disease, unspecified; T38.0X5A Adverse effect of glucocorticoids and synthetic analogues, initial encounter; Z99.11 Dependence on respirator [ventilator] status; Z78.9 Other specified health status; Z99.81 Dependence on supplemental oxygen; Z68.37 Body mass index [BMI] 37.0-37.9, adult; Z79.899 Other long term (current) drug therapy; Y93.89 Activity, other specified; Y92.89 Other specified places as the place of occurrence of the external cause; Y99.8 Other external cause status
CPT/HCPCS: 36415; 36580; 36600; 71045; 76770; 76937; 80048; 80053; 80076; 80202; 80305; 81003; 82375; 82550; 82553; 82607; 82728; 82746; 82805; 82962; 83036; 83540; 83550; 83605; 83615; 83735; 83880; 84100; 84132; 84145; 84478; 84484; 85025; 85379; 85384; 86140; 86705; 86709; 86803; 87070; 87106; 87340; 87426; 93005; 93970; 94002; 94003; 94640; 94660; 99291; C1725; C1752; J0282; J0330; J0456; J0461; J0610; J0692; J0696; J1100; J1644; J1650; J1815; J2250; J2370; J2704; J2765; J2920; J3010; J3370; J3490; J7030; J7040; J7050; J7060; J7070; A4315